=== PATIENT | male | born 1965 | race Caucasian/White ===

== ENCOUNTER 2016-08-18 20:55 | Emergency (ER) | payer MEDICAID ==
[2016-08-18] MEDS: IPRATROPIUM/ALBUTEROL (0.5MG/3MG) NEB INH ONE (21:29)
[2016-08-18] MEDS: AZITHROMYCIN 500 MG TABLET PO ONE (21:31)
--- NOTE | 2016-08-18 21:37 | Emergency Department Record ---
History of Present Illness - General Chief complaint: Flu Like Symptoms Stated complaint: CONGESTION Time Seen by Provider: 08/18/16 21:15 Source: Patient Mode of Arrival: Ambulatory Limitations: No limitations - History of Present Illness Initial comments: pt has been having a productive dark cough for a few days w sob and sweats. pt states he only smoked 4 cigarettes today. pt also has congestion MD Complaint: Lack of energy Onset/Timin -: Minutes(s) Location: Generalized Improves with: None Worsens with: None Associated Symptoms: Diaphoresis, Fever/chills, Nausea/vomiting, Shortness of breath - Bryant Coma Scale Eye Response: (4) Open spontaneously Motor Response: (6) Obeys commands Verbal Response: (5) Oriented Liliam Total: 15 - Related Data Home Medications Medication Instructions Recorded Confirmed Last Taken Atenolol [Atenolol] 100 mg PO DAILY 02/02/15 08/18/16 08/18/16 Furosemide [Furosemide] 40 mg PO BID 02/02/15 08/18/16 08/11/16 Amlodipine Besylate [Norvasc] 10 mg PO DAILY 05/17/15 08/18/16 08/18/16 Benazepril HCl [Benazepril HCl] 40 mg PO DAILY 05/17/15 08/18/16 08/18/16 Escitalopram Oxalate [Lexapro] 20 mg PO DAILY 11/11/15 08/18/16 08/18/16 Fluticasone Propionate [Flonase] 2 spray EACH NARES DAILY 08/18/16 08/18/1601/27 Previous Rx's Medication Instructions Recorded Albuterol Sulfate [Proair Hfa] 2 puff IH QID PRN #1 inhaler 12/16/15 Cyclobenzaprine HCl [Flexeril] 10 mg PO TID #30 tablet 03/29/16 Azithromycin [Zithromax] 250 mg PO DAILY #4 tab 08/18/16 Allergies Allergy/AdvReac Type Severity Reaction Status Date / Time No Known Drug Allergies Allergy Verified 05/30/16 15:46 Travel Screening - Travel/Exposure Within Last 30 Days Have you traveled within the last 30 days?: No - Travel/Exposure Within Last Year Have you traveled outside the [place] in the last year?: No - Additonal Travel Details Have you been exposed to anyone with a communicable illness?: No - Travel Symptoms Symptom Screening: None Review of Systems Reviewed: No additional complaints except as noted below Constitutional: Reports: As per HPI. Denies: Chills, Fever, Malaise, Night sweats, Weakness, Weight change Eyes: Reports: As per HPI. Denies: Eye discharge, Eye pain, Photophobia, Vision change ENT: Reports: As per HPI. Denies: Congestion, Dental pain, Ear pain, Epistaxis , Hearing loss, Throat pain Respiratory: Reports: As per HPI. Denies: Cough, Dyspnea, Hemoptysis, Stridor, Wheezes Cardiovascular: Reports: As per HPI. Denies: Arrhythmia, Chest pain, Dyspnea on exertion, Edema, Murmurs, Orthopnea, Palpitations, Paroxysmal nocturnal dyspnea, Rheumatic Fever, Syncope Endocrine: Reports: As per HPI. Denies: Fatigue, Heat or cold intolerance, Polydipsia, Polyuria Gastrointestinal: Reports: As per HPI. Denies: Abdominal pain, Constipation, Diarrhea, Hematemesis, Hematochezia, Melena, Nausea, Vomiting Genitourinary: Reports: As per HPI. Denies: Dysuria, Frequency, Hematuria, Incontinence, Retention, Testicular pain, Testicular mass, Urgency Musculoskeletal: Reports: As per HPI. Denies: Arthralgia, Back pain, Gout, Joint swelling, Myalgia, Neck pain Skin: Reports: As per HPI. Denies: Bruising, Change in color, Change in hair/ nails, Lesions, Pruritus, Rash Neurological: Reports: As per HPI. Denies: Abnormal gait, Confusion, Headache, Numbness, Paresthesias, Seizure, Tingling, Tremors, Vertigo, Weakness Psychiatric: Reports: As per HPI. Denies: Anxiety, Auditory hallucinations, Depression, Homicidal thoughts, Suicidal thoughts, Visual hallucinations Hematological/Lymphatic: Reports: As per HPI. Denies: Anemia, Blood Clots, Easy bleeding, Easy bruising, Swollen glands Past Medical History - SOCIAL HISTORY Smoking Status: Current every day smoker Alcohol Use: Occassional Drug Use: None - RESPIRATORY Hx Respiratory Disorders: No - CARDIOVASCULAR Hx Cardio Disorders: Yes Hx Edema: Yes (BLE) Hx Hypertension: Yes Hx Vascular Disease: Yes - NEURO Hx Neuro Disorders: Yes Hx CVA: Yes - GI Hx GI Disorders: No - Hx Genitourinary Disorders: No - ENDOCRINE Hx Endocrine Disorders: No - MUSCULOSKELETAL Hx Musculoskeletal Disorders: Yes Hx Arthritis: Yes (lower back) - PSYCH Hx Psych Problems: Yes Hx Anxiety: Yes (recent dx) Hx Depression: Yes - HEMATOLOGY/ONCOLOGY Hx Hematology/Oncology Disorders: No Family Medical History Any Significant Family History?: No Physical Exam - General General Appearance: Alert, Oriented x3, Cooperative - Head Head exam: Normal inspection - Eye Eye exam: Normal appearance, PERRL, EOMI Pupils: Normal accommodation - ENT ENT exam: Normal exam, Mucous membranes moist, Normal external ear exam, Normal orophraynx, TM's normal bilaterally Ear exam: Normal external inspection. negative: External canal tenderness Nasal Exam: Normal inspection. negative: Discharge, Sinus tenderness Mouth exam: Normal external inspection, Tongue normal Teeth exam: Normal inspection. negative: Dental caries Throat exam: Normal inspection. negative: Tonsillar erythema, Tonsillar exudate - Neck Neck exam: Normal inspection, Full ROM. negative: Tenderness - Respiratory Respiratory exam: Rales, Wheezes. negative: Respiratory distress - Cardiovascular Cardiovascular Exam: Regular rate, Normal rhythm, Normal heart sounds - GI/Abdominal GI/Abdominal exam: Soft, Normal bowel sounds. negative: Tenderness - Rectal Rectal exam: Deferred - exam: Deferred - Extremities Extremities exam: Normal inspection, Full ROM, Normal capillary refill. negative: Tenderness - Back Back exam: Reports: Normal inspection, Full ROM. Denies: Muscle spasm, Rash noted, Tenderness - Neurological Neurological exam: Alert, CN II-XII intact, Normal gait, Oriented X3 - Psychiatric Psychiatric exam: Normal affect, Normal mood - Skin Skin exam: Dry, Intact, Normal color, Warm Course Vital Signs 08/18/16 21:00 Temperature 98.0 F Pulse Rate [ 70 Pulse Ox Probe] Respiratory 18 Rate Blood Pressure 140/94 [Left Arm] Pulse Ox 97 Medical Decision Making - Management Options MDM Management: No Additional Work-up Planned - Data Complexity MDM Data: X-Ray Ordered and/or Reviewed - Radiology Data Radiology results: Report reviewed, Image reviewed Disposition Disposition: Discharge Clinical Impression: Bronchitis Disposition: Home, Self-Care Condition: (1) Good Instructions: Acute Bronchitis (ED), How to Stop Smoking (ED), Cigarette Smoking and Your Health (GEN) Additional Instructions: follow up with family doctor. return sooner if worse. Prescriptions: Azithromycin [Zithromax] 250 mg PO DAILY #4 tab Forms: Patient Portal Access
--- NOTE | 2016-08-23 08:42 | RADIOLOGY REPORT ---
EXAM: CHEST, TWO VIEWS HISTORY: PATIENT HAS A PRODUCTIVE COUGH WITH DARK SPUTUM. TECHNIQUE: Two views of the chest were provided along with the comparison study dated 12/16/15. FINDINGS: The cardiomediastinal silhouette is within normal limits for size and contour. The lela appear unremarkable. There is no radiographic evidence of a focal infiltrate or pleural effusion. IMPRESSION: STABLE RADIOGRAPHIC APPEARANCE OF THE CHEST WITH RESPECT TO THE PRIOR EXAMINATION. JOB NUMBER: [id number] MTDD
== END 2016-08-18 23:25 | disposition home or self-care (01) ==
LOC: ER 20:55
DX: J20.9 Acute bronchitis, unspecified (principal); R06.02 Shortness of breath; R11.0 Nausea; R61 Generalized hyperhidrosis; F17.210 Nicotine dependence, cigarettes, uncomplicated
CPT/HCPCS: 71020; 94640; 99283; 99284

== ENCOUNTER 2016-11-09 16:15 | Observation (INO) | payer MEDICAID ==
--- NOTE | 2016-11-09 16:31 | Emergency Department Record ---
History of Present Illness - General Chief Complaint: Chest Pain Stated Complaint: CHEST PAIN Time Seen by Provider: 11/09/16 16:29 Source: Patient Mode of Arrival: Ambulatory Limitations: No limitations - History of Present Illness Initial Comments: The patient is here due to a 12 hour hx of sharp stabbing R anterior chest pain. The pain has been waxing and waning all day. He denies any SOB, ZAHRA, or sweating with the pain but has had some mild nausea. He has had a recent URI and is still coughing mildly with mild sputum but no fever. The patient states he is taking Amoxicillin presently that was given at the [facility]. The patient has had some CP with exertion recently and also denies any pleuritic component to the pain. He does have cardiac risk factors of HTN, tobacco use, and family hx of CAD. Presently the pain is almost gone. MD Complaint: Chest pain Onset/Timin -: Hour(s) Onset: Awoke with symptoms Pain Location: Substernal Pain Radiation: None Severity: Mild Severity scale (1-10): 3 Quality: Other Consistency: Intermittent Improves With: Nothing Worsens With: Nothing Treatments Prior to Arrival: None - Related Data Home Medications Medication Instructions Recorded Confirmed Last Taken Atenolol [Atenolol] 100 mg PO DAILY 02/02/15 11/09/16 08/18/16 Furosemide [Furosemide] 40 mg PO BID 02/02/15 11/09/16 08/11/16 Amlodipine Besylate [Norvasc] 10 mg PO DAILY 05/17/15 11/09/16 08/18/16 Benazepril HCl [Benazepril HCl] 40 mg PO DAILY 05/17/15 11/09/16 08/18/16 Escitalopram Oxalate [Lexapro] 20 mg PO DAILY 11/11/15 11/09/16 08/18/16 Fluticasone Propionate [Flonase] 2 spray EACH NARES DAILY 08/18/16 11/09/1601/27 Albuterol Sulfate [Ventolin Hfa] 1 puff IH QID PRN 11/09/16 11/09/16 Unknown Cyclobenzaprine HCl [Flexeril] 10 mg PO TID PRN 11/09/16 11/09/16 Unknown Previous Rx's Medication Instructions Recorded Albuterol Sulfate [Proair Hfa] 2 puff IH QID PRN #1 inhaler 12/16/15 Allergies Allergy/AdvReac Type Severity Reaction Status Date / Time No Known Drug Allergies Allergy Unverified 10/26/16 19:36 Travel Screening - Travel/Exposure Within Last 30 Days Have you traveled within the last 30 days?: No Review of Systems Constitutional: Denies: Chills, Fever Eyes: Denies: Eye discharge ENT: Reports: Congestion Respiratory: Reports: Cough. Denies: Dyspnea Cardiovascular: Reports: Chest pain. Denies: Arrhythmia, Dyspnea on exertion Endocrine: Reports: Fatigue Past Medical History - SOCIAL HISTORY Smoking Status: Current every day smoker Alcohol Use: Occassional Drug Use: None - RESPIRATORY Hx Respiratory Disorders: No - CARDIOVASCULAR Hx Cardio Disorders: Yes Hx Edema: Yes (BLE) Hx Hypertension: Yes Hx Vascular Disease: Yes - NEURO Hx Neuro Disorders: Yes Hx CVA: Yes - GI Hx GI Disorders: No - Hx Genitourinary Disorders: No - ENDOCRINE Hx Endocrine Disorders: No - MUSCULOSKELETAL Hx Musculoskeletal Disorders: Yes Hx Arthritis: Yes (lower back) - PSYCH Hx Psych Problems: Yes Hx Anxiety: Yes (recent dx) Hx Depression: Yes - HEMATOLOGY/ONCOLOGY Hx Hematology/Oncology Disorders: No Family Medical History Any Significant Family History?: No Physical Exam - General General Appearance: Alert, Oriented x3, Cooperative, No acute distress - Head Head exam: Atraumatic, Normocephalic, Normal inspection - Eye Eye exam: Normal appearance, PERRL - Neck Neck exam: Normal inspection, Full ROM. negative: Tenderness - Respiratory Respiratory exam: Normal lung sounds bilaterally, Chest wall tenderness ( Palpation of the anterior chest wall reproduces the pain mildly.). negative: Respiratory distress - Cardiovascular Cardiovascular Exam: Regular rate, Normal rhythm, Normal heart sounds - GI/Abdominal GI/Abdominal exam: Soft, Normal bowel sounds. negative: Tenderness - Extremities Extremities exam: Pedal edema (Trace.) - Neurological Neurological exam: Alert, Normal gait. negative: Abnormal gait, Motor sensory deficit Course Vital Signs 11/09/16 16:19 Temperature 97.9 F Pulse Rate 69 Respiratory 22 Rate Blood Pressure 135/81 Pulse Ox 97 - Reevaluation(s) Reevaluation #1: The patient is doing much better at this time. He denies any pain or discomfort presently and has no SOB or pain with deep breaths. His cardiac evaluation was WNL and we are still waiting on a D-dimer. 11/09/16 17:37 Reevaluation #2: The patient is doing very well presently and is pain free. He does seem to have some sleep apnea because he will doze off to sleep and his RA biox does drop below 90%. When he wakes up and sits up the biox does increase to 95%. I also did discuss the case with Dr. Orellana and she agrees to the short stay admission. 11/09/16 18:37 Medical Decision Making - Data Complexity MDM Data: Labs Ordered and/or Reviewed, X-Ray Ordered and/or Reviewed, EKG Ordered and/or Reviewed - Lab Data Result diagrams: 11/09/16 16:35 11/09/16 16:35 - EKG Data -: EKG Interpreted by Me EKG: No Acute Changes, Normal EKG - Radiology Data Radiology results: Report reviewed (CXR: No acute dz process.) Disposition Disposition: Admit Clinical Impression: Chest pain at rest Decision to Admit: Admit from ER Decision to Admit Date: 11/09/16 Decision to Admit Time: 18:39 Accepting Physician: Reyna Time Discussed w/Accepting Physician: 18:39 Forms: Patient Portal Access Time of Disposition: 18:39
[2016-11-09] MEDS ORDERED: ASPIRIN 325 MG TABLET PO ONE (16:43)
[2016-11-09] MEDS ORDERED: KETOROLAC 30 MG/ML VIAL IVP ONE (16:44)
[2016-11-09 16:52] LABS: BASO % 0.3 % (0-6); EOS % 5.7 % (0-6); HEMOGLOBIN 16.9 gm/dl (14.0-18.0); LYMPH % 22.3 % (16-45); MEAN CELL VOLUME 93.9 fl (81-97); MEAN CORPUSCULAR HEMOGLOBIN 32.4 pg (27-33); MEAN CORPUSCULAR HGB CONC 34.5 g/dl (32-36); MEAN PLATELET VOLUME 10.9 fl (7.4-10.4); MONO % 9.7 % (0-9); PLATELET COUNT 146 K/uL (130-400); RED BLOOD COUNT 5.22 M/uL (4.40-5.70); WHITE BLOOD COUNT W/O DIFF 7.7 K/uL (4.2-12.2)
[2016-11-09 17:03] LABS: ANION GAP 6.5 (7-16); BLOOD UREA NITROGEN 15 mg/dL (9-20); CARBON DIOXIDE 29.5 mmol/L (22-30); CREATINE PHOSPHOKINASE 269 U/L (55-170); EST GLOMERULAR FILTRATION RATE > 60 ml/min; GLUCOSE,RANDOM 114 mg/dL (70-110)
[2016-11-09 17:05] LABS: INR 1.01; PARTIAL THROMBOPLASTIN TIME 29.4 SECONDS (24.5-39.1); PROTHROMBIN TIME (PATIENT) 11.4 SECONDS (9.5-12.1)
[2016-11-09 17:15] LABS: CKMB 1.9 ug/L (0-6); TROPONIN I < 0.012 ng/mL (0.00-0.034)
[2016-11-09] MEDS ORDERED: AZITHROMYCIN 500 MG TABLET PO ONE (18:04)
[2016-11-09] MEDS ORDERED: LEVOFLOXACIN 500MG IVPB 500 MG in DEXTROSE 1 BAG IVPB SCH (21:17)
[2016-11-09] MEDS ORDERED: CYCLOBENZAPRINE 10MG TABLET PO PRN (21:17)
[2016-11-09] MEDS ORDERED: ALBUTEROL HFA 8 GM INHALER INH PRN (21:17)
[2016-11-09] MEDS ORDERED: FUROSEMIDE 40 MG TABLET PO SCH (22:00)
--- NOTE | 2016-11-10 07:21 | RADIOLOGY REPORT ---
EXAM: CHEST, TWO VIEWS HISTORY: DIFFICULTY BREATHING. TECHNIQUE: Frontal and lateral views of the chest were performed. FINDINGS: There is no infiltrate or pleural effusion. The osseous structures are normal. IMPRESSION: NO ACUTE DISEASE PROCESS. THE OSSEOUS STRUCTURES ARE NORMAL. JOB NUMBER: [id number] MTDD
--- NOTE | 2016-11-10 09:34 | History & Physical ---
History of Present Illness - Date of Service Date of Service for History & Physical: 11/10/16 - History of Present Illness Admitting Diagnosis: 1. Chest pain, R/O MN. History of Present Illness: 51 y/o male with CC chest pain admitted for rule out MN. 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 Prior to admit had 12 hour history of chest pain while laying in bed with 10-15 minute episode of sharp stabbing right anterior chest pain radiating to right shoulder. Denies ZAHRA, shortness of breath, diaphoresis, dizziness. Reports chest pain was nearly resolved by the time he arrived to ED. Denies any prior history of chest pain or cardiac issues. Has never seen a speed operator. Has had recent URI, treated with amoxicillin a few days ago by Tae. Denied fever, chills. + sinus pressure and pain on and off for the past month. While in the ED BP 135/81, P 69, RR 22, T 97.9, SPO2 97% RA. WBC 7.7, Plt 146, D Dimer 0.27, anion gap 6.5, CK 209. Troponin #1 .012, CKMB # 1 1.9. EKG NSR, prolonged MT interval, nonspecific intraventricular conduction delay. CXR negative for acute process. Admitted for observation and completion of cardiac enzyme series. PCP. Dr Rusty Pinedo ([place], [place]) 11/10- resting comfortably in bed. No further complaint of chest pain or discomfort. Continues to report intermittent cough consistent with URI, sinus pain and pressure. T 98, P 62, BP 108/56, SPO2 92% 2L while sleeping, 100% RM while awake. Denies any history of sleep apnea. Complete set of cardiac enzymes as follows: MB #1 1.9, #2 1.7, #3 1.7. Troponin #1 0.012, #2 0.012, #3 0.012. Telemetry remains NSR Travel Screening - Travel/Exposure Within Last 30 Days Have you traveled within the last 30 days?: No - Travel/Exposure Within Last Year Have you traveled outside the [place] in the last year?: No - Additonal Travel Details Have you been exposed to anyone with a communicable illness?: No - Travel Symptoms Symptom Screening: None Review of Systems Constitutional: Denies: Chills, Fever Eyes: Denies: Eye discharge ENT: Reports: Congestion Respiratory: Reports: Cough. Denies: Dyspnea Cardiovascular: Reports: Chest pain. Denies: Arrhythmia, Dyspnea on exertion Endocrine: Reports: Fatigue Past Medical History - SOCIAL HISTORY Smoking Status: Current every day smoker Alcohol Use: Occassional Drug Use Detail:: Marijuana - RESPIRATORY Hx Respiratory Disorders: No Comment:: uses inhaler but doesn't know dx - CARDIOVASCULAR Hx Cardio Disorders: Yes Hx Edema: Yes (BLE) Hx Hypertension: Yes Hx Vascular Disease: Yes - NEURO Hx Neuro Disorders: Yes Hx CVA: Yes - GI Hx GI Disorders: No Comment:: occasional abd pain - Hx Genitourinary Disorders: No - ENDOCRINE Hx Endocrine Disorders: No - MUSCULOSKELETAL Hx Musculoskeletal Disorders: Yes Hx Arthritis: Yes (lower back) - PSYCH Hx Psych Problems: Yes Hx Anxiety: Yes (recent dx) Hx Depression: Yes - HEMATOLOGY/ONCOLOGY Hx Hematology/Oncology Disorders: No Family Medical History Any Significant Family History?: No Hx Anxiety: Mother Hx Depression: Father, Mother, Children Hx Diabetes: Grandparents Hx HTN: Mother Hx Seizures: Brother/Sister H&P Meds/Allergies - Allergies Allergies: Allergies Allergy/AdvReac Type Severity Reaction Status Date / Time No Known Drug Allergies Allergy Unverified 10/26/16 19:36 - Home Medications Home Medications Medication Instructions Recorded Confirmed Last Taken Atenolol 100 mg PO DAILY 02/02/15 11/09/16 08/18/16 Furosemide 40 mg PO BID 02/02/15 11/09/16 08/11/16 Amlodipine Besylate [Norvasc] 10 mg PO DAILY 05/17/15 11/09/16 08/18/16 Benazepril HCl 40 mg PO DAILY 05/17/15 11/09/16 08/18/16 Escitalopram Oxalate [Lexapro] 20 mg PO DAILY 11/11/15 11/09/16 08/18/16 Fluticasone Propionate [Flonase] 2 spray EACH NARES DAILY 08/18/16 11/09/1601/27 Albuterol Sulfate [Ventolin Hfa] 1 puff IH QID PRN 11/09/16 11/09/16 Unknown Cyclobenzaprine HCl [Flexeril] 10 mg PO TID PRN 11/09/16 11/09/16 Unknown Previous Rx's Medication Instructions Recorded Albuterol Sulfate [Proair Hfa] 2 puff IH QID PRN #1 inhaler 12/16/15 - Active Medications Active Medications: Current Medications Albuterol Sulfate (Ventolin Hfa) 2 puff INH QID PRN PRN Reason: Cough and Difficulty Breathing Amlodipine Besylate (Norvasc) 10 mg PO DAILY [facility] Aspirin (Ecotrin (Ec)) 325 mg PO DAILY [facility] Atenolol (Tenormin) 100 mg PO DAILY [facility] Benazepril HCl (Lotensin) 40 mg PO DAILY [facility] Cyclobenzaprine HCl (Flexeril) 10 mg PO TID PRN PRN Reason: MUSCLE SPASMS Escitalopram Oxalate (Lexapro) 20 mg PO DAILY [facility] Furosemide (Lasix Iv) 40 mg IVP BIDDIUR MADI Levofloxacin/Dextrose 500 mg/ (Glucose) 100 mls @ 125 mls/hr IVPB Q24H [facility]ADI Stop: 11/14/16 21:18 Last Admin: 11/09/16 23:13 Dose: 125 mls/hr Physical Exam - Vital Signs Vital Signs: Vital Signs - Last 24 Hrs Temp Pulse Pulse Resp BP BP Pulse Ox 11/10/16 08:45 60 12 11/10/16 05:02 97.6 F 64 12 131/77 91 L 11/10/16 04:55 91 L 11/10/16 01:03 68 18 11/10/16 00:10 97.8 F 61 18 120/65 92 L 11/10/16 00:02 92 L 11/09/16 21:17 98.0 F 67 20 128/79 91 L - General General Appearance: Alert, Oriented x3, Cooperative, No acute distress Limitations: No limitations - Head Head exam: Atraumatic, Normocephalic, Normal inspection - Eye Eye exam: Normal appearance, PERRL - ENT ENT exam: Mucous membranes moist (turbinates engorged, hyperemic bilat), TM's normal bilaterally Ear exam: Normal external inspection Nasal Exam: Sinus tenderness Mouth exam: Normal external inspection Teeth exam: Normal inspection Throat exam: Normal inspection (mid sternal, reproduced with cough) - Neck Neck exam: Normal inspection, Full ROM. negative: Tenderness - Respiratory Respiratory exam: Normal lung sounds bilaterally, Chest wall tenderness ( Palpation of the anterior chest wall reproduces the pain mildly.). negative: Respiratory distress - Cardiovascular Cardiovascular Exam: Regular rate, Normal rhythm, Normal heart sounds - GI/Abdominal GI/Abdominal exam: Soft, Normal bowel sounds. negative: Tenderness - Extremities Extremities exam: Pedal edema (Trace.) - Neurological Neurological exam: Alert, Normal gait. negative: Abnormal gait, Motor sensory deficit Results - Labs Result Diagrams: 11/09/16 16:35 11/09/16 16:35 Labs Last 24 Hours: Laboratory Results - last 24 hr 11/09/16 11/09/16 11/10/16 21:45 21:45 05:15 CK-MB (CK-2) 1.7 1.7 Troponin I < 0.012 11/10/16 05:15 CK-MB (CK-2) Troponin I < 0.012 VTE H&P Assessment - Risk for VTE Risk for VTE: Yes Risk Level: Moderate Risk Assessment Date: 11/10/16 Risk Assessment Time: 14:54 VTE Orders Placed or Will Be Placed: Yes Plan - Detailed Diagnosis and Plan (1) Chest pain at rest Current Visit: Yes Status: Acute Base Code: R07.9 - CHEST PAIN, UNSPECIFIED Comment: 11/10- Right sided chest pain at rest x 12 hours on and off for 12 hours prior to admit. Was laying in bed resting at the time. PMX HTN, current everyday smoker, anxiety, + family hx CAD. While in the ED BP 135/81, P 69, RR 22, T 97.9, SPO2 97% RA. WBC 7.7, Plt 146, D Dimer 0.27, anion gap 6.5, CK 209. Troponin #1 .012, CKMB # 1 1.9. EKG NSR, prolonged MT interval, nonspecific intraventricular conduction delay. CXR negative for acute process. Admitted for observation and completion of cardiac enzyme series. Complete set of cardiac enzymes as follows: MB #1 1.9, #2 1.7, #3 1.7. Troponin #1 0.012, #2 0.012, #3 0.012. Telemetry remains NSR. SPO2 92% 2L while sleeping - Anticipate discharge home, chest pain etiology not likely cardiac in nature - Nursing to trial without oxygen at rest and awake - Follow up with PCP in 2 weeks (2) Sinusitis Current Visit: Yes Status: Acute Qualifiers: Sinusitis location: frontal Chronicity: acute Recurrence: recurrent Qualified Code(s): J01.11 - Acute recurrent frontal sinusitis Base Code: J32.9 - CHRONIC SINUSITIS, UNSPECIFIED Comment: 11/10/16- Diagnosed and treated for sinusitis prior to admit. WBC normal , afebrile. No prior use of antibiotics in the last 30 days. No history of COPD. Will continue Augmentin 875/125 BID (3) DVT prophylaxis Current Visit: Yes Status: Acute Base Code: [id number] - Comment: 11/10- Encourgage frequent ambulation during hospitalization (4) Full code status Current Visit: Yes Status: Acute Base Code: Z78.9 - OTHER SPECIFIED HEALTH STATUS Comment: 11/10- Will remain full code during this hospitalization
[2016-11-10] MEDS ORDERED: FUROSEMIDE IV 40MG/4ML VIAL IVP SCH (10:00)
[2016-11-10] MEDS ORDERED: Non-Formulary MISC (Amlodipine Besylate [Norvasc] 10 MG) PO SCH (10:00)
[2016-11-10] MEDS ORDERED: AMLODIPINE BESYLATE 5MG TAB PO SCH (10:00)
[2016-11-10] MEDS ORDERED: BENAZEPRIL HCL 40 MG PO SCH (10:00)
[2016-11-10] MEDS ORDERED: ATENOLOL 50 MG TABLET PO SCH (10:00)
[2016-11-10] MEDS ORDERED: ATENOLOL 100 MG PO SCH (10:00)
[2016-11-10] MEDS ORDERED: ASPIRIN 325 MG TAB ENTERIC-COATED PO SCH (10:00)
[2016-11-10] MEDS ORDERED: ESCITALOPRAM 10 MG TABLET PO SCH (10:00)
[2016-11-10] MEDS ORDERED: BENAZEPRIL 20 MG TABLET PO SCH (10:00)
[2016-11-10] MEDS ORDERED: Non-Formulary MISC (Escitalopram Oxalate [Lexapro] 20 MG) PO SCH (10:00)
--- NOTE | 2016-11-10 14:29 | Discharge Summary ---
Providers Discharge Summary Date: 11/10/16 Date of admission: 11/09/16 20:47 Expected Date of Discharge: 11/10/16 Attending physician: LYRIC XIAO Primary care physician: RUSTY PINEDO Physical Exam - Vital Signs Vital Signs: Vital Signs - Last 24 Hrs Temp Pulse Pulse Resp BP BP Pulse Ox 11/10/16 09:00 98.0 F 62 14 108/56 92 L 11/10/16 08:45 60 12 11/10/16 05:02 97.6 F 64 12 131/77 91 L 11/10/16 04:55 91 L 11/10/16 01:03 68 18 11/10/16 00:10 97.8 F 61 18 120/65 92 L 11/10/16 00:02 92 L 11/09/16 21:17 98.0 F 67 20 128/79 91 L - General General Appearance: Alert, Oriented x3, Cooperative, No acute distress Limitations: No limitations - Head Head exam: Atraumatic, Normocephalic, Normal inspection - Eye Eye exam: Normal appearance, PERRL - Neck Neck exam: Normal inspection, Full ROM. negative: Tenderness - Respiratory Respiratory exam: Normal lung sounds bilaterally, Chest wall tenderness ( Palpation of the anterior chest wall reproduces the pain mildly.). negative: Respiratory distress - Cardiovascular Cardiovascular Exam: Regular rate, Normal rhythm, Normal heart sounds - GI/Abdominal GI/Abdominal exam: Soft, Normal bowel sounds. negative: Tenderness - Extremities Extremities exam: Pedal edema (Trace.) - Neurological Neurological exam: Alert, Normal gait. negative: Abnormal gait, Motor sensory deficit Hospitalization - Hospitalization Admission Diagnosis: 1. Chest pain, R/O NE. - Problem List/Discharge Diagnosis (1) Chest pain at rest Current Visit: Yes Status: Acute Base Code: R07.9 - CHEST PAIN, UNSPECIFIED Comment: 11/10- Right sided chest pain at rest x 12 hours on and off for 12 hours prior to admit. Was laying in bed resting at the time. PMX HTN, current everyday smoker, anxiety, + family hx CAD. While in the ED BP 135/81, P 69, RR 22, T 97.9, SPO2 97% RA. WBC 7.7, Plt 146, D Dimer 0.27, anion gap 6.5, CK 209. Troponin #1 .012, CKMB # 1 1.9. EKG NSR, prolonged MA interval, nonspecific intraventricular conduction delay. CXR negative for acute process. Admitted for observation and completion of cardiac enzyme series. Complete set of cardiac enzymes as follows: MB #1 1.9, #2 1.7, #3 1.7. Troponin #1 0.012, #2 0.012, #3 0.012. Telemetry remains NSR. SPO2 92% 2L while sleeping - Discharge home, chest pain etiology not likely cardiac in nature - O2 trial RA 95% while awake, 86% while sleep - Follow up with PCP in 2 weeks - Adivse follow up to rule out sleep apnea (2) Sinusitis Current Visit: Yes Status: Acute Discharge Diagnosis: Sinusitis location: frontal Chronicity: acute Recurrence: recurrent Qualified Code(s): J01.11 - Acute recurrent frontal sinusitis Base Code: J32.9 - CHRONIC SINUSITIS, UNSPECIFIED Comment: 11/10/16- Diagnosed and treated for sinusitis prior to admit. WBC normal , afebrile. No prior use of antibiotics in the last 30 days. No history of COPD. Will continue Augmentin 875/125 BID (3) DVT prophylaxis Current Visit: Yes Status: Acute Base Code: [id number] - Comment: 11/10- Encourgage frequent ambulation during hospitalization (4) Full code status Current Visit: Yes Status: Acute Base Code: Z78.9 - OTHER SPECIFIED HEALTH STATUS Comment: 11/10- Will remain full code during this hospitalization - Hospitalization Course Hospital Course: 51 y/o male with CC chest pain admitted for rule out NE. 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 Prior to admit had 12 hour history of chest pain while laying in bed with 10-15 minute episode of sharp stabbing right anterior chest pain radiating to right shoulder. Denies ZAHRA, shortness of breath, diaphoresis, dizziness. Reports chest pain was nearly resolved by the time he arrived to ED. Denies any prior history of chest pain or cardiac issues. 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 Has had recent URI, treated with amoxicillin a few days ago by Tae. Denied fever, chills. + sinus pressure and pain on and off for the past month. While in the ED BP 135/81, P 69, RR 22, T 97.9, SPO2 97% RA. WBC 7.7, Plt 146, D Dimer 0.27, anion gap 6.5, CK 209. Troponin #1 .012, CKMB # 1 1.9. EKG NSR, prolonged MA interval, nonspecific intraventricular conduction delay. CXR negative for acute process. Admitted for observation and completion of cardiac enzyme series. PCP. Dr Rusty Pinedo ([place], [place]) Condition at Discharge: (2) Stable Discharge Medications - Discharge Medications Home Medications: Ambulatory Orders Atenolol 100 mg PO DAILY 02/02/15 [Last Taken 08/18/16] Furosemide 40 mg PO BID 02/02/15 [Last Taken 08/11/16] Amlodipine Besylate [Norvasc] 10 mg PO DAILY 05/17/15 [Last Taken 08/18/16] Benazepril HCl 40 mg PO DAILY 05/17/15 [Last Taken 08/18/16] Escitalopram Oxalate [Lexapro] 20 mg PO DAILY 11/11/15 [Last Taken 08/18/16] Albuterol Sulfate [Proair Hfa] 2 puff IH QID PRN #1 inhaler 12/16/15 [Last Taken 08/18/16] Fluticasone Propionate [Flonase] 2 spray EACH NARES DAILY 08/18/16 [Last Taken 08/18/16] Albuterol Sulfate [Ventolin Hfa] 1 puff IH QID PRN 11/09/16 [Last Taken Unknown] Cyclobenzaprine HCl [Flexeril] 10 mg PO TID PRN 11/09/16 [Last Taken Unknown] Discharge Plan - Discharge Instructions Activity at Discharge: Increase Activity as Tolerated Diet at Discharge: Advance to Usual Diet
== END 2016-11-10 16:20 | disposition home or self-care (01) ==
LOC: ER 16:15 → INTOOBSV 20:47 → MEDSURG 20:47
PROVIDERS: ADMIT Family Medicine; ATTEND Family Medicine
DX: R07.9 Chest pain, unspecified (principal); I10 Essential (primary) hypertension; F17.200 Nicotine dependence, unspecified, uncomplicated; J32.9 Chronic sinusitis, unspecified; Z78.9 Other specified health status
CPT/HCPCS: 99285 ×2; 96374; 82550; 85025; 85730; 85610; 82553 ×2; 84484 ×2; 80048; 85379; 71020; 94761; 93005 ×2; 93010 ×2; G0378 ×2; J1885; 99220; J1956

== ENCOUNTER 2017-03-16 21:43 | Emergency (ER) | payer MEDICAID ==
[2017-03-16] MEDS ORDERED: ASPIRIN 81 MG CHEWABLE TABLET PO ONE (22:00)
--- NOTE | 2017-03-16 22:05 | Emergency Department Record ---
History of Present Illness - General Chief Complaint: Shortness of breath Stated Complaint: ZAHRA/ HEART HITTING HIS CHEST Time Seen by Provider: 03/16/17 21:45 Source: Patient Mode of Arrival: Ambulatory Limitations: No limitations - History of Present Illness Initial Comments: 51 yo male presents to ED with a CC of a coughing fit followed by "chest pressure" that lasted several minutes, now resolved. Patient reports that he was putting on his CPAP when his symptoms began. Patient denies fevers, chills , or productive cough symptoms. Patient denies previous heart or lung problems and reports recent negative stress testing. MD Complaint: Chest pain, Shortness of breath Onset/Timin -: Minutes(s) Severity: Moderate Severity scale (1-10): 5 Quality: Crushing Consistency: Intermittent, Now resolved Improves With: Nothing Worsens With: Coughing Context: Anxiety, Recent URI Associated Symptoms: Cough, Sputum production Treatments Prior to Arrival: None - Related Data Home Oxygen Therapy: Yes Home Oxygen Amount: 2 Liters Home Medications Medication Instructions Recorded Confirmed Last Taken Atenolol 100 mg PO DAILY 02/02/15 03/16/17 03/16/17 Furosemide 40 mg PO BID 02/02/15 03/16/17 03/16/17 Amlodipine Besylate [Norvasc] 10 mg PO DAILY 05/17/15 03/16/17 03/16/17 Benazepril HCl 40 mg PO DAILY 05/17/15 03/16/17 03/16/17 Escitalopram Oxalate [Lexapro] 20 mg PO DAILY 11/11/15 03/16/17 03/16/17 Fluticasone Propionate [Flonase] 2 spray EACH NARES DAILY 08/18/16 03/16/1711/27 Albuterol Sulfate [Ventolin Hfa] 1 puff IH QID PRN 11/09/16 03/16/17 03/16/17 Cyclobenzaprine HCl [Flexeril] 10 mg PO TID PRN 11/09/16 03/16/17 03/16/17 Previous Rx's Medication Instructions Recorded Albuterol Sulfate [Proair Hfa] 2 puff IH QID PRN #1 inhaler 12/16/15 Allergies Allergy/AdvReac Type Severity Reaction Status Date / Time No Known Drug Allergies Allergy Unverified 10/26/16 19:36 Travel Screening - Travel/Exposure Within Last 30 Days Have you traveled within the last 30 days?: No - Travel Symptoms Symptom Screening: None Review of Systems Constitutional: Denies: Chills, Fever, Malaise, Night sweats Eyes: Denies: Eye discharge, Eye pain ENT: Denies: Congestion, Ear pain, Epistaxis Respiratory: Reports: Cough, Dyspnea. Denies: Hemoptysis, Stridor Cardiovascular: Reports: Chest pain. Denies: Dyspnea on exertion, Palpitations Endocrine: Denies: Fatigue, Heat or cold intolerance Gastrointestinal: Denies: Abdominal pain, Nausea, Vomiting Genitourinary: Denies: Testicular pain, Testicular mass Musculoskeletal: Denies: Arthralgia, Back pain, Gout, Joint swelling Skin: Denies: Bruising, Change in color Neurological: Denies: Abnormal gait, Confusion, Headache, Seizure Psychiatric: Denies: Anxiety Hematological/Lymphatic: Denies: Anemia, Blood Clots Past Medical History - SOCIAL HISTORY Smoking Status: Current every day smoker Alcohol Use: Occasional Drug Use: Occasional Drug Use Detail:: Marijuana - RESPIRATORY Hx Respiratory Disorders: Yes Comment:: uses inhaler but doesn't know dx - CARDIOVASCULAR Hx Cardio Disorders: Yes Hx Edema: Yes (BLE) Hx Hypertension: Yes Hx Vascular Disease: Yes - NEURO Hx Neuro Disorders: Yes Hx CVA: Yes - GI Hx GI Disorders: No Comment:: occasional abd pain - Hx Genitourinary Disorders: No - ENDOCRINE Hx Endocrine Disorders: No - MUSCULOSKELETAL Hx Musculoskeletal Disorders: Yes Hx Arthritis: Yes (lower back) - PSYCH Hx Psych Problems: Yes Hx Anxiety: Yes (recent dx) Hx Depression: Yes - HEMATOLOGY/ONCOLOGY Hx Hematology/Oncology Disorders: No Family Medical History Any Significant Family History?: Yes Hx Anxiety: Mother Hx Depression: Father, Mother, Children Hx Diabetes: Grandparents Hx HTN: Mother Hx Seizures: Brother/Sister Physical Exam - General General Appearance: Alert, Oriented x3, Cooperative, No acute distress Limitations: No limitations - Head Head exam: Atraumatic, Normocephalic, Normal inspection Head exam detail: negative: Abrasion, Contusion, Brady's sign, General tenderness, Hematoma, Laceration - Eye Eye exam: Normal appearance. negative: Conjunctival injection, Periorbital swelling, Periorbital tenderness, Scleral icterus - ENT Ear exam: negative: Auricular hematoma, Auricular trauma Nasal Exam: negative: Active bleeding, Discharge, Dried blood, Foreign body Mouth exam: negative: Drooling, Laceration, Tongue elevation - Neck Neck exam: Normal inspection. negative: Meningismus, Tenderness - Respiratory Respiratory exam: Normal lung sounds bilaterally. negative: Rales, Respiratory distress, Rhonchi, Stridor - Cardiovascular Cardiovascular Exam: Regular rate, Normal rhythm, Normal heart sounds - GI/Abdominal GI/Abdominal exam: Soft. negative: Rebound, Rigid, Tenderness - Rectal Rectal exam: Deferred - exam: Deferred - Extremities Extremities exam: Normal inspection. negative: Calf tenderness, Pedal edema, Tenderness - Back Back exam: Denies: CVA tenderness (R), CVA tenderness (L) - Neurological Neurological exam: Alert, Normal gait, Oriented X3 - Psychiatric Psychiatric exam: Normal affect, Normal mood - Skin Skin exam: Normal color. negative: Abrasion Type of lesion: negative: abrasion Course Vital Signs 03/16/17 21:50 Temperature 97.6 F Pulse Rate [ 71 Pulse Ox Probe] Respiratory 18 Rate Blood Pressure 143/91 [Left Arm] Pulse Ox 96 - Reevaluation(s) Reevaluation #1: 03/16/17 22:04 EKG: NSR 69 Normal axis, normal intervals No acute ST-T wave changes No significant change from 11/10/16 Reevaluation #2: 03/16/17 22:46 Labs reviewed, CK 316, AST 66/ALT 122. Labs are otherwise grossly unremarkable for an acute process. CXR: No acute process. Patient was updated on all results and plan for repeat troponin at 3 hours. Patient agrees with the plan as discussed. Reevaluation #3: 03/17/17 01:43 Repeat Troponin is negative for myocardial damage. Will refer the patient for outpatient stress testing next week through the [facility]. Patient agrees with plan as discussed. Medical Decision Making - Lab Data Result diagrams: 03/16/17 22:05 03/16/17 22:05 Disposition Disposition: Discharge Clinical Impression: Chest pain Qualifiers: Chest pain type: unspecified Qualified Code(s): R07.9 - Chest pain, unspecified Disposition: Home, Self-Care Condition: (2) Stable Instructions: Chest Pain (ED) Additional Instructions: Return to ED if your symptoms worsen or if you have any concerns. Follow-up with Dr. Celis in the [facility] next week as directed. Referrals: RAVINDER CELIS M.D. [MEDICAL DOCTOR] - [facility] [Provider Group] Forms: Patient Portal Access Time of Disposition: 01:46 Quality - Quality Measures Quality Measures: N/A - Blood Pressure Screening Blood Pressure Classification: Normal BP Reading Systolic Measurement: 118 Diastolic Measurement: 71 Screening for High Blood Pressure: < Normal BP, F/U Not Required > [[id number]] Normal BP Follow-up Interventions: No follow-up required
[2017-03-16 22:20] LABS: BASO % 0.4 % (0-6); EOS % 7.3 % (0-6); GRAN % 57.1 % (47-80); HEMATOCRIT 45.8 % (42.0-52.0); HEMOGLOBIN 15.9 gm/dl (14.0-18.0); LYMPH % 24.6 % (16-45); MEAN CELL VOLUME 92.9 fl (81-97); MEAN CORPUSCULAR HEMOGLOBIN 32.3 pg (27-33); MEAN CORPUSCULAR HGB CONC 34.7 g/dl (32-36); MEAN PLATELET VOLUME 11.1 fl (7.4-10.4); MONO % 10.6 % (0-9); PLATELET COUNT 140 K/uL (130-400); RED BLOOD COUNT 4.93 M/uL (4.40-5.70); RED CELL DISTRIBUTION WIDTH 13.5 % (11.5-14.5); WHITE BLOOD COUNT W/O DIFF 8.5 K/uL (4.2-12.2)
[2017-03-16 22:29] LABS: ALB/GLOB RATIO 1.5 (1.1-1.8); ALKALINE PHOSPHATASE 116 U/L (38-126); ALT/SGPT 122 U/L (21-72); ANION GAP 8.2 (7-16); AST/SGOT 66 U/L (17-59); BILIRUBIN,TOTAL 0.76 mg/dL (0.2-1.3); BLOOD UREA NITROGEN 15 mg/dL (9-20); CARBON DIOXIDE 27.8 mmol/L (22-30); CREATINE PHOSPHOKINASE 316 U/L (55-170); CREATININE 0.7 mg/dL (0.66-1.25); EST GLOMERULAR FILTRATION RATE > 60 ml/min; GLUCOSE,RANDOM 142 mg/dL (70-110); TOTAL PROTEIN 6.6 gm/dL (6.3-8.2)
[2017-03-16 22:41] LABS: CKMB 3.5 ug/L (0-6)
[2017-03-16 22:42] LABS: TROPONIN I < 0.012 ng/mL (0.00-0.034)
--- NOTE | 2017-03-19 08:43 | RADIOLOGY REPORT ---
EXAM: CHEST, TWO VIEWS HISTORY: COUGHING. TECHNIQUE: Frontal and lateral views of the chest were obtained. Comparison: 11/09/16 chest. FINDINGS: The heart size is normal. The lungs are clear. No pneumothorax. IMPRESSION: NEGATIVE CHEST EXAMINATION. JOB NUMBER: [id number] MTDD
== END 2017-03-17 02:04 | disposition home or self-care (01) ==
LOC: ER 21:43
DX: R07.89 Other chest pain (principal); I10 Essential (primary) hypertension; F17.210 Nicotine dependence, cigarettes, uncomplicated; R06.02 Shortness of breath
CPT/HCPCS: 71020; 80053; 82550; 82553; 84484; 85025; 93005; 93010; 99284

== ENCOUNTER 2017-04-09 20:12 | Emergency (ER) | payer SELFPAY ==
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
[2017-04-09] MEDS ORDERED: HYDROCODONE/APAP 5/325MG TABLET PO ONE (22:35)
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
== END 2017-04-09 22:52 | disposition home or self-care (01) ==
LOC: ER 20:12
DX: S16.1XXA Strain of muscle, fascia and tendon at neck level, initial encounter (principal); S39.012A Strain of muscle, fascia and tendon of lower back, initial encounter; S46.912A Strain of unspecified muscle, fascia and tendon at shoulder and upper arm level, left arm, initial encounter; R07.89 Other chest pain; V89.2XXA Person injured in unspecified motor-vehicle accident, traffic, initial encounter
CPT/HCPCS: 71020; 72050; 72100; 99283; 99284

== ENCOUNTER 2017-07-08 19:59 | Emergency (ER) | payer MEDICAID ==
--- NOTE | 2017-07-08 20:17 | Emergency Department Record ---
History of Present Illness - General Chief complaint: Pain Stated complaint: RT KNEE PAIN/SWELLING Time Seen by Provider: 07/08/17 20:15 Source: Patient Mode of Arrival: Ambulatory Limitations: No limitations - History of Present Illness Initial comments: 51 yo male presents to ED for evaluation of right knee strain that occurred 2 weeks ago while having intercourse. Patient denies direct injury or traumatic injury, but may have twisted resulting in pain the following morning. Patient reports pain and swelling symptoms, denies redness, warmth, fevers, or instability. Patient has been able to ambulate but reports pain. Patient has not taken anything for pain at home. Patient denies health problems at his baseline. MD Complaint: Joint pain Onset/Timin -: Days(s) Location: Right, Knee History of Same: No Severity scale (1-10): 2 Quality: Sharp Consistency: Constant, Intermittent Improves with: Elevation, Rest, Other Worsens with: Walking, Weight bearing Associated Symptoms: Denies other symptoms - Related Data Previous Rx's Medication Instructions Recorded Albuterol Sulfate [Proair Hfa] 2 puff IH QID PRN #1 inhaler 12/16/15 Allergies Allergy/AdvReac Type Severity Reaction Status Date / Time No Known Drug Allergies Allergy Unverified 06/14/17 15:43 Travel Screening - Travel/Exposure Within Last 30 Days Have you traveled within the last 30 days?: No - Travel/Exposure Within Last Year Have you traveled outside the [place] in the last year?: No - Additonal Travel Details Have you been exposed to anyone with a communicable illness?: No - Travel Symptoms Symptom Screening: None Review of Systems Constitutional: Denies: Chills, Fever, Malaise, Night sweats Eyes: Denies: Eye discharge, Eye pain ENT: Denies: Congestion, Ear pain, Epistaxis Respiratory: Denies: Cough, Dyspnea Cardiovascular: Denies: Chest pain, Dyspnea on exertion Endocrine: Denies: Fatigue, Heat or cold intolerance Gastrointestinal: Denies: Abdominal pain, Nausea, Vomiting Genitourinary: Denies: Incontinence, Retention Musculoskeletal: Reports: Arthralgia, Joint swelling. Denies: Back pain, Gout Skin: Denies: Bruising, Change in color Neurological: Denies: Abnormal gait, Confusion, Headache, Seizure Psychiatric: Denies: Anxiety Hematological/Lymphatic: Denies: Anemia, Blood Clots Past Medical History - SOCIAL HISTORY Smoking Status: Current every day smoker Alcohol Use: Occasional Drug Use: None - RESPIRATORY Hx Respiratory Disorders: Yes Comment:: uses inhaler but doesn't know dx allergies - CARDIOVASCULAR Hx Cardio Disorders: Yes Hx Edema: Yes (BLE) Hx Hypertension: Yes Hx Vascular Disease: Yes - NEURO Hx Neuro Disorders: Yes Hx CVA: Yes - GI Hx GI Disorders: No Comment:: occasional abd pain - Hx Genitourinary Disorders: No - ENDOCRINE Hx Endocrine Disorders: No - MUSCULOSKELETAL Hx Musculoskeletal Disorders: Yes Hx Arthritis: Yes (lower back) - PSYCH Hx Psych Problems: Yes Hx Anxiety: Yes (recent dx) Hx Depression: Yes - HEMATOLOGY/ONCOLOGY Hx Hematology/Oncology Disorders: No Family Medical History Any Significant Family History?: No Hx Anxiety: Mother Hx Depression: Father, Mother, Children Hx Diabetes: Grandparents Hx HTN: Mother Hx Seizures: Brother/Sister Physical Exam - General General Appearance: Alert, Oriented x3, Cooperative, No acute distress Limitations: No limitations - Head Head exam: Atraumatic, Normocephalic, Normal inspection Head exam detail: negative: Abrasion, Contusion, Brady's sign, General tenderness, Hematoma, Laceration - Eye Eye exam: Normal appearance. negative: Conjunctival injection, Periorbital swelling, Periorbital tenderness, Scleral icterus - ENT Ear exam: negative: Auricular hematoma, Auricular trauma Nasal Exam: negative: Active bleeding, Discharge, Dried blood, Foreign body Mouth exam: negative: Drooling, Laceration, Muffled voice, Tongue elevation - Neck Neck exam: Normal inspection. negative: Meningismus, Tenderness - Respiratory Respiratory exam: Normal lung sounds bilaterally. negative: Rales, Respiratory distress, Rhonchi, Stridor - Cardiovascular Cardiovascular Exam: Regular rate, Normal rhythm, Normal heart sounds - GI/Abdominal GI/Abdominal exam: Soft. negative: Rebound, Rigid, Tenderness - Rectal Rectal exam: Deferred - exam: Deferred - Extremities Extremities exam: Other (Ligaments are stable on examination, no evidence for septic joint on examination, no effusion present.). negative: Calf tenderness, Joint swelling, Pedal edema, Tenderness - Back Back exam: Denies: CVA tenderness (R), CVA tenderness (L) - Neurological Neurological exam: Alert, Normal gait, Oriented X3 - Psychiatric Psychiatric exam: Normal affect, Normal mood - Skin Skin exam: Normal color. negative: Abrasion Type of lesion: negative: abrasion Course Vital Signs 07/08/17 20:03 Pulse Rate 69 Respiratory 20 Rate Blood Pressure 128/84 Pulse Ox 95 - Reevaluation(s) Reevaluation #1: 07/08/17 20:21 Patient was seen and examined, knee examination is essentially normal. Will place in knee immobilizer and prescribe Naprosyn for his symptoms as he has not taken anything for his pain symptoms with instructions to follow-up with his PCP in 5-7 days for further evaluation and to determine the need for MRI. Disposition Disposition: Discharge Clinical Impression: Strain of knee Qualifiers: Encounter type: initial encounter Laterality: right Qualified Code(s): S86.911A - Strain of unspecified muscle(s) and tendon(s) at lower leg level, right leg, initial encounter Disposition: Home, Self-Care Condition: (2) Stable Instructions: Knee Pain (ED) Additional Instructions: Return to ED if your symptoms worsen or if you have any concerns. Naprosyn as directed. Knee immobilizer as directed. Follow-up with your family doctor in 5-7 days as directed. Forms: Patient Portal Access Time of Disposition: 20:16 Quality - Quality Measures Quality Measures: N/A - Blood Pressure Screening Does Patient Have Any of the Following: No Blood Pressure Classification: Pre-Hypertensive BP Reading Systolic Measurement: 128 Diastolic Measurement: 84 Screening for High Blood Pressure: < Pre-Hypertensive BP, F/U Documented > [ G8950] Pre-Hypertensive Follow-up Interventions: Referral to alternative/primary care provider.
== END 2017-07-08 20:32 | disposition home or self-care (01) ==
LOC: ER 19:59
DX: S86.911A Strain of unspecified muscle(s) and tendon(s) at lower leg level, right leg, initial encounter (principal); V50.0XXA Driver of pick-up truck or van injured in collision with pedestrian or animal in nontraffic accident, initial encounter
CPT/HCPCS: 99282

== ENCOUNTER 2018-01-19 16:07 | Emergency (ER) | payer MEDICAID ==
[2018-01-19] MEDS ORDERED: PROPARACAINE HCL OPTH 15ML BTL OPTH ONE (16:29)
[2018-01-19] MEDS ORDERED: POLYMYXIN B SULF/TRIMETHOPRIM 10ML BTL OPTH ONE (16:56)
--- NOTE | 2018-01-19 16:56 | Emergency Department Record ---
History of Present Illness - General Chief complaint: Eye Problem Stated complaint: LT EYE IRRITATION Time Seen by Provider: 01/19/18 16:28 Source: Patient Mode of Arrival: Ambulatory Limitations: No limitations - History of Present Illness Initial comments: 52 yo male presents with left eye irritation that started 2 weeks ago. He was working on his car and felt like he got some "grit" in the eye. The eye was irritated for about 3-4 days. It improved then seem to return for another 3-4 days then calm down again. The last couple days the eye again has a FB sensation, mild lid swelling and awoke with some crusting this morning. No vision changes. He wears glasses but no contacts. Not a diabetic. MD chief complaint: Eye pain, Foreign body -: Week(s) (2) Onset Description: Gradual Location: Left eye Place: Home If Injury: Other (debris around the car) Eye Symptoms: Foreign body sensation (lateral aspect of the eye) Consistency: Intermittent Associated Symptoms: None Treatments Prior to Arrival: None - Related Data Previous Rx's Medication Instructions Recorded Albuterol Sulfate [Proair Hfa] 2 puff IH QID PRN #1 inhaler 12/16/15 Olopatadine HCl [Patanol] 1 drop OP BID #1 drops 01/19/18 Allergies Allergy/AdvReac Type Severity Reaction Status Date / Time No Known Drug Allergies Allergy Verified 01/19/18 16:41 Review of Systems Constitutional: Denies: Chills, Fever, Malaise, Weakness Eyes: Reports: Eye pain. Denies: Eye discharge, Photophobia, Vision change ENT: Denies: Congestion, Throat pain Respiratory: Denies: Cough Cardiovascular: Denies: Chest pain, Syncope Endocrine: Denies: Fatigue Gastrointestinal: Denies: Abdominal pain, Diarrhea, Nausea, Vomiting Genitourinary: Denies: Dysuria, Frequency, Hematuria Musculoskeletal: Denies: Arthralgia, Back pain, Myalgia Skin: Denies: Bruising, Change in color, Rash Neurological: Denies: Headache, Numbness, Weakness Psychiatric: Denies: Anxiety Hematological/Lymphatic: Denies: Easy bleeding, Easy bruising Past Medical History - SOCIAL HISTORY Smoking Status: Current every day smoker Drug Use: None - RESPIRATORY Hx Respiratory Disorders: Yes Comment:: uses inhaler but doesn't know dx allergies - CARDIOVASCULAR Hx Cardio Disorders: Yes Hx Edema: Yes (BLE) Hx Hypertension: Yes Hx Vascular Disease: Yes - NEURO Hx Neuro Disorders: Yes Hx CVA: Yes - GI Hx GI Disorders: No Comment:: occasional abd pain - Hx Genitourinary Disorders: No - ENDOCRINE Hx Endocrine Disorders: No - MUSCULOSKELETAL Hx Musculoskeletal Disorders: Yes Hx Arthritis: Yes (lower back) - PSYCH Hx Psych Problems: Yes Hx Anxiety: Yes (recent dx) Hx Depression: Yes - HEMATOLOGY/ONCOLOGY Hx Hematology/Oncology Disorders: No Family Medical History Hx Anxiety: Mother Hx Depression: Father, Mother, Children Hx Diabetes: Grandparents Hx HTN: Mother Hx Seizures: Brother/Sister Physical Exam - General General Appearance: Alert, Oriented x3, Cooperative, No acute distress Limitations: No limitations - Head Head exam: Normal inspection - Eye Eye exam: PERRL, Conjunctival injection, EOMI, Periorbital swelling (upper lid erythema and very mild swelling). negative: Normal appearance, Scleral icterus - ENT ENT exam: Normal exam, Mucous membranes moist Ear exam: Normal external inspection Nasal Exam: Normal inspection Mouth exam: Normal external inspection Teeth exam: Normal inspection Throat exam: Normal inspection - Neck Neck exam: Normal inspection, Full ROM. negative: Tenderness - Respiratory Respiratory exam: Normal lung sounds bilaterally. negative: Respiratory distress - Cardiovascular Cardiovascular Exam: Regular rate, Normal rhythm, Normal heart sounds - Neurological Neurological exam: Alert, Normal gait, Oriented X3 - Psychiatric Psychiatric exam: Normal affect, Normal mood - Skin Skin exam: Dry, Intact, Normal color, Warm Course - Reevaluation(s) Reevaluation #1: Slit Lamp: AC is clear Upper lid erythema mild conjunctival injection, increased lateral No FB visualized under magnification He did have 2 areas of abrasion with uptake at the close 6 o'clock and the 4 o' clock No ulcers visible Tonopen used with 3 good readings of 16,16,17 06/09/18 16:37 Disposition Disposition: Discharge Clinical Impression: Corneal abrasion Qualifiers: Encounter type: initial encounter Laterality: left Qualified Code(s): S05.02XA - Injury of conjunctiva and corneal abrasion without foreign body, left eye, initial encounter Disposition: Home, Self-Care Condition: (1) Good Instructions: Corneal Abrasion (ED) Additional Instructions: Return to the ED if worse, painful, vision changes Use the antibiotic every 4 hours Call your eye doctor on Sunday for a recheck of the eye Prescriptions: Olopatadine HCl [Patanol] 1 drop OP BID #1 drops Forms: Patient Portal Access Time of Disposition: 17:00 Quality - Quality Measures Quality Measures: N/A - Blood Pressure Screening Does Patient Have Any of the Following: Active Dx of HTN Blood Pressure Classification: Pre-Hypertensive BP Reading Systolic Measurement: 113 Diastolic Measurement: 80 Screening for High Blood Pressure: Patient Exclusion, Hx of HTN [G9744] Pre-Hypertensive Follow-up Interventions: Referral to alternative/primary care provider.
== END 2018-01-19 17:12 | disposition home or self-care (01) ==
LOC: ER 16:07
DX: S05.02XA Injury of conjunctiva and corneal abrasion without foreign body, left eye, initial encounter (principal); W22.8XXA Striking against or struck by other objects, initial encounter; I10 Essential (primary) hypertension; F17.210 Nicotine dependence, cigarettes, uncomplicated
CPT/HCPCS: 99283 ×2; J3490

== ENCOUNTER 2018-05-28 17:59 | Emergency (ER) | payer MEDICAID ==
[2018-05-28] MEDS ORDERED: PROPARACAINE HCL OPTH 15ML BTL OPTH ONE (18:06)
--- NOTE | 2018-05-28 18:14 | Emergency Department Record ---
History of Present Illness - General Chief complaint: Eye Problem Stated complaint: FOREIGN OBJECT LT EYE/BLURRY Time Seen by Provider: 05/28/18 18:12 Source: Patient Mode of Arrival: Ambulatory Limitations: No limitations - History of Present Illness Initial comments: 52 yo male presents to ED for evaluation of a FB sensation to the left eye that began yesterday while working on his truck. Patient reports mild blurred vision to the left eye, denies specific injury of discharge to the eye. Patient reports history of HTN, cerebral aneurysm s/p clipping. MD chief complaint: Foreign body, Vision change Onset/Timin -: Days(s) Location: Left eye Place: Street/outdoors Eye Symptoms: Blurry vision Associated Symptoms: None Treatments Prior to Arrival: None - Related Data Previous Rx's Medication Instructions Recorded Albuterol Sulfate [Proair Hfa] 2 puff IH QID PRN #1 inhaler 12/16/15 Allergies Allergy/AdvReac Type Severity Reaction Status Date / Time No Known Drug Allergies Allergy Verified 05/28/18 18:07 Travel Screening - Travel/Exposure Within Last 30 Days Have you traveled within the last 30 days?: No Review of Systems Constitutional: Denies: Chills, Fever, Malaise, Night sweats Eyes: Reports: Eye pain, Vision change. Denies: Eye discharge, Photophobia ENT: Denies: Congestion, Ear pain, Epistaxis Respiratory: Denies: Cough, Dyspnea Cardiovascular: Denies: Chest pain, Dyspnea on exertion Endocrine: Denies: Fatigue, Heat or cold intolerance Gastrointestinal: Denies: Abdominal pain, Nausea, Vomiting Genitourinary: Denies: Incontinence, Retention Musculoskeletal: Denies: Arthralgia, Back pain Skin: Denies: Bruising, Change in color Neurological: Denies: Abnormal gait, Confusion, Headache Psychiatric: Denies: Anxiety Hematological/Lymphatic: Denies: Anemia, Blood Clots Past Medical History - SOCIAL HISTORY Smoking Status: Current every day smoker Alcohol Use: None Drug Use: None - RESPIRATORY Hx Respiratory Disorders: Yes Comment:: uses inhaler but doesn't know dx allergies - CARDIOVASCULAR Hx Cardio Disorders: Yes Hx Edema: Yes (BLE) Hx Hypertension: Yes Hx Vascular Disease: Yes - NEURO Hx Neuro Disorders: Yes Hx CVA: Yes - GI Hx GI Disorders: No Comment:: occasional abd pain - Hx Genitourinary Disorders: No - ENDOCRINE Hx Endocrine Disorders: No - MUSCULOSKELETAL Hx Musculoskeletal Disorders: Yes Hx Arthritis: Yes (lower back) - PSYCH Hx Psych Problems: Yes Hx Anxiety: Yes (recent dx) Hx Depression: Yes - HEMATOLOGY/ONCOLOGY Hx Hematology/Oncology Disorders: No Family Medical History Any Significant Family History?: Yes Hx Anxiety: Mother Hx Depression: Father, Mother, Children Hx Diabetes: Grandparents Hx HTN: Mother Hx Seizures: Brother/Sister Physical Exam - General General Appearance: Alert, Oriented x3, Cooperative, Mild distress Limitations: No limitations - Head Head exam: Atraumatic, Normocephalic, Normal inspection Head exam detail: negative: Abrasion, Contusion, Brady's sign, General tenderness, Hematoma, Laceration - Eye Eye exam: Conjunctival injection, Other (<0.1 cm abrasion to the mid-pupil region of the cornea, no discharge noted, no FB noted on eversion of the upper/ lower lids, negative Mary's.). negative: Periorbital swelling, Periorbital tenderness, Scleral icterus - ENT Ear exam: negative: Auricular hematoma, Auricular trauma Nasal Exam: negative: Active bleeding, Discharge, Dried blood, Foreign body Mouth exam: negative: Drooling, Laceration, Muffled voice, Tongue elevation - Neck Neck exam: Normal inspection. negative: Meningismus, Tenderness - Respiratory Respiratory exam: Normal lung sounds bilaterally. negative: Rhonchi, Stridor, Wheezes - Cardiovascular Cardiovascular Exam: Regular rate, Normal rhythm, Normal heart sounds - GI/Abdominal GI/Abdominal exam: Soft. negative: Rebound, Rigid, Tenderness - Rectal Rectal exam: Deferred - exam: Deferred - Extremities Extremities exam: Normal inspection. negative: Pedal edema, Tenderness - Back Back exam: Denies: CVA tenderness (R), CVA tenderness (L) - Neurological Neurological exam: Alert, Normal gait, Oriented X3 - Psychiatric Psychiatric exam: Normal affect, Normal mood - Skin Skin exam: Normal color. negative: Abrasion Type of lesion: negative: abrasion Course Vital Signs 05/28/18 18:04 Temperature 98.3 F Pulse Rate 57 L Respiratory 18 Rate Blood Pressure 123/71 Pulse Ox 96 - Reevaluation(s) Reevaluation #1: 05/28/18 18:19 Patient was seen and examined, small corneal abrasion is noted at the mid- pupil. No FB present on examination. Negative Mary's sign. [facility] reviewed: 20/40 Right 20/40 Left Disposition Disposition: Discharge Clinical Impression: Corneal abrasion Qualifiers: Encounter type: initial encounter Laterality: left Qualified Code(s): S05.02XA - Injury of conjunctiva and corneal abrasion without foreign body, left eye, initial encounter Disposition: Home, Self-Care Condition: (2) Stable Instructions: Corneal Abrasion (ED) Additional Instructions: Return to ED if your symptoms worsen or if you have any concerns. Polymyxin eye drops as directed. Follow-up with your eye doctor in [place] in 1-3 days as directed. Forms: Patient Portal Access Time of Disposition: 18:14 Quality - Quality Measures Quality Measures: N/A - Blood Pressure Screening Does Patient Have Any of the Following: No Blood Pressure Classification: Pre-Hypertensive BP Reading Systolic Measurement: 123 Diastolic Measurement: 71 Screening for High Blood Pressure: < Pre-Hypertensive BP, F/U Documented > [ G8950] Pre-Hypertensive Follow-up Interventions: Referral to alternative/primary care provider.
[2018-05-28] MEDS ORDERED: POLYMYXIN B SULF/TRIMETHOPRIM 10ML BTL OPTH SCH (18:15)
== END 2018-05-28 18:30 | disposition home or self-care (01) ==
LOC: ER 17:59
DX: S05.02XA Injury of conjunctiva and corneal abrasion without foreign body, left eye, initial encounter (principal); Y92.410 Unspecified street and highway as the place of occurrence of the external cause; I10 Essential (primary) hypertension; F17.210 Nicotine dependence, cigarettes, uncomplicated
CPT/HCPCS: 99282

== ENCOUNTER 2018-07-11 15:09 | Emergency (ER) | payer MEDICAID ==
--- NOTE | 2018-07-11 15:33 | Emergency Department Record ---
History of Present Illness - General Chief complaint: Flank Pain Stated complaint: COUGH AND SWELLING ON SIDE Time Seen by Provider: 07/11/18 15:24 Source: Patient Mode of Arrival: Ambulatory Limitations: No limitations - History of Present Illness Initial comments: The patient is here due to a productive cough for 2 days. He has had no SOB or ZAHRA or fever. Additionally the patient has felt L flank "swelling" for a year. He has seen his PCP for it but no dx was given. There has been no flank pain, hematuria, or trauma involved. MD Complaint: Other Onset/Timin -: Days(s) Location: Left flank Improves with: None Worsens with: None - Related Data Previous Rx's Medication Instructions Recorded Albuterol Sulfate [Proair Hfa] 2 puff IH QID PRN #1 inhaler 12/16/15 Doxycycline Monohydrate [Mondoxyne 100 mg PO BID #14 capsule 07/11/18 Nl] Allergies Allergy/AdvReac Type Severity Reaction Status Date / Time No Known Drug Allergies Allergy Verified 05/28/18 18:07 Travel Screening - Travel/Exposure Within Last 30 Days Have you traveled within the last 30 days?: No - Travel/Exposure Within Last Year Have you traveled outside the [place] in the last year?: No - Additonal Travel Details Have you been exposed to anyone with a communicable illness?: No - Travel Symptoms Symptom Screening: None Review of Systems Constitutional: Denies: Chills, Fever, Malaise Eyes: Denies: Eye discharge ENT: Reports: Congestion Respiratory: Reports: Cough. Denies: Dyspnea Past Medical History - SOCIAL HISTORY Smoking Status: Current every day smoker Alcohol Use: Occasional Drug Use: Occasional Drug Use Detail:: Marijuana - RESPIRATORY Hx Respiratory Disorders: Yes Comment:: uses inhaler but doesn't know dx allergies - CARDIOVASCULAR Hx Cardio Disorders: Yes Hx Edema: Yes (BLE) Hx Hypertension: Yes Hx Vascular Disease: Yes - NEURO Hx Neuro Disorders: Yes Hx CVA: Yes - GI Hx GI Disorders: No Comment:: occasional abd pain - Hx Genitourinary Disorders: No - ENDOCRINE Hx Endocrine Disorders: No - MUSCULOSKELETAL Hx Musculoskeletal Disorders: Yes Hx Arthritis: Yes (lower back) - PSYCH Hx Psych Problems: Yes Hx Anxiety: Yes (recent dx) Hx Depression: Yes - HEMATOLOGY/ONCOLOGY Hx Hematology/Oncology Disorders: No Family Medical History Any Significant Family History?: No Hx Anxiety: Mother Hx Depression: Father, Mother, Children Hx Diabetes: Grandparents Hx HTN: Mother Hx Seizures: Brother/Sister Physical Exam - General General Appearance: Alert, Oriented x3, Cooperative, No acute distress - Head Head exam: Atraumatic, Normocephalic, Normal inspection - Eye Eye exam: Normal appearance, PERRL - ENT Throat exam: Normal inspection. negative: Tonsillar erythema, Tonsillar exudate - Neck Neck exam: Normal inspection, Full ROM. negative: Tenderness - Respiratory Respiratory exam: Normal lung sounds bilaterally. negative: Respiratory distress - Cardiovascular Cardiovascular Exam: Regular rate, Normal rhythm, Normal heart sounds - GI/Abdominal GI/Abdominal exam: Soft (morbidly obese.), Normal bowel sounds. negative: Distended, Rebound, Rigid, Tenderness Course Vital Signs 07/11/18 15:15 Temperature 97.7 F Pulse Rate 56 L Respiratory 18 Rate Blood Pressure 121/82 Pulse Ox 96 - Reevaluation(s) Reevaluation #1: I did discuss the normal lab results with the patient and the need for F/U due to the chronic L flank issue. 07/11/18 16:42 Medical Decision Making - Data Complexity MDM Data: Labs Ordered and/or Reviewed - Lab Data Result diagrams: 07/11/18 15:43 07/11/18 15:43 Disposition Disposition: Discharge Clinical Impression: Sinusitis Qualifiers: Sinusitis location: unspecified location Chronicity: acute Recurrence: not specified as recurrent Qualified Code(s): J01.90 - Acute sinusitis, unspecified Disposition: Home, Self-Care Condition: (2) Stable Instructions: Sinusitis (ED) Additional Instructions: Please take the Doxycycline as directed and quit smoking. Please see your family doctor next week if not better. Return to the ER for any worsening issues. Prescriptions: Doxycycline Monohydrate [Mondoxyne Nl] 100 mg PO BID #14 capsule Forms: Patient Portal Access Time of Disposition: 16:43 Quality - Quality Measures Quality Measures: N/A - Blood Pressure Screening View Details: Yes Does Patient Have Any of the Following: No Blood Pressure Classification: Pre-Hypertensive BP Reading Systolic Measurement: 121 Diastolic Measurement: 82 Screening for High Blood Pressure: < Pre-Hypertensive BP, F/U Documented > [ G8950] Pre-Hypertensive Follow-up Interventions: Referral to alternative/primary care provider.
[2018-07-11 15:54] LABS: BASO % 0.4 % (0-6); EOS % 3.6 % (0-6); GRAN % 68.9 % (47-80); HEMATOCRIT 48.2 % (42.0-52.0); LYMPH % 18.8 % (16-45); MEAN CELL VOLUME 92.5 fl (81-97); MEAN CORPUSCULAR HEMOGLOBIN 32.6 pg (27-33); MEAN CORPUSCULAR HGB CONC 35.3 g/dl (32-36); MEAN PLATELET VOLUME 11.3 fl (7.4-10.4); MONO % 8.3 % (0-9); PLATELET COUNT 145 K/uL (130-400); RED BLOOD COUNT 5.21 M/uL (4.40-5.70); RED CELL DISTRIBUTION WIDTH 13.4 % (11.5-14.5); URINE APPEARANCE CLEAR; URINE BILIRUBIN NEGATIVE (NEGATIVE); URINE BLOOD TRACE-I (NEGATIVE); URINE COLOR YELLOW; URINE GLUCOSE (UA) NEGATIVE (NEGATIVE); URINE KETONE NEGATIVE (NEGATIVE); URINE LEUKOCYTE ESTERASE NEGATIVE (NEGATIVE); URINE NITRITE NEGATIVE (NEGATIVE); URINE PROTEIN NEGATIVE (NEGATIVE); URINE UROBILINOGEN 0.2 E.U./dL (0.20 - 1.00); WHITE BLOOD COUNT W/O DIFF 10.7 K/uL (4.2-12.2)
[2018-07-11 16:02] LABS: URINE RBC 0 - 2 (NONE SEEN); URINE WBC NONE SEEN (0-2/hpf)
[2018-07-11 16:07] LABS: BLOOD UREA NITROGEN 14 mg/dL (6-20); CREATININE 0.8 mg/dL (0.7-1.2); EST GLOMERULAR FILTRATION RATE > 60 mL/min
[2018-07-11 16:08] LABS: TOTAL PROTEIN 7.3 g/dL (6.6-8.7)
[2018-07-11 16:10] LABS: GLUCOSE,RANDOM 99 mg/dL (74-109)
[2018-07-11 16:12] LABS: ALT/SGPT 28 U/L (<41)
[2018-07-11 16:13] LABS: ALB/GLOB RATIO 1.4 (1.1-1.8); ALBUMIN 4.3 g/dL (4.0-5.0); ALKALINE PHOSPHATASE 92 U/L (40-129); AST/SGOT 20 U/L (10.0-50.0)
== END 2018-07-11 16:51 | disposition home or self-care (01) ==
LOC: ER 15:09
DX: J01.90 Acute sinusitis, unspecified (principal); R05 Cough; R10.9 Unspecified abdominal pain; I10 Essential (primary) hypertension; F17.210 Nicotine dependence, cigarettes, uncomplicated
CPT/HCPCS: 80053; 81001; 85025; 99283

== ENCOUNTER 2018-08-14 15:11 | Emergency (ER) | payer MEDICAID ==
[2018-08-14] MEDS ORDERED: IPRATROPIUM/ALBUTEROL (0.5MG/3MG) NEB INH ONE (15:45)
[2018-08-14 15:58] LABS: INFLUENZA A NEGATIVE (NEGATIVE); INFLUENZA B NEGATIVE (NEGATIVE)
--- NOTE | 2018-08-14 16:00 | Emergency Department Record ---
History of Present Illness - General Chief complaint: Cold Stated complaint: SINUS/CHEST CONGESTION, ZAHRA Time Seen by Provider: 08/14/18 15:45 Source: Patient Mode of Arrival: Ambulatory - History of Present Illness Initial comments: cough and congestion and some wheezing and he smokes cigarettes Onset/Timin -: Days(s) Severity: Moderate Severity scale (1-10): 7 Quality: Aching - Related Data Previous Rx's Medication Instructions Recorded Albuterol Sulfate [Proair Hfa] 2 puff IH QID PRN #1 inhaler 12/16/15 Albuterol Sulfate [Proair Hfa] 1 - 2 puff IH .EVERY 4-6 HOURS PRN 08/14/18 #1 inhaler Azithromycin 250 mg PO DAILY #6 tablet 08/14/18 Prednisone [Prednisone 10Mg] 10 mg PO ASDIR #30 tab 08/14/18 Allergies Allergy/AdvReac Type Severity Reaction Status Date / Time No Known Drug Allergies Allergy Verified 08/14/18 15:21 Travel Screening - Travel/Exposure Within Last 30 Days Have you traveled within the last 30 days?: No - Travel/Exposure Within Last Year Have you traveled outside the [place] in the last year?: No - Additonal Travel Details Have you been exposed to anyone with a communicable illness?: No - Travel Symptoms Symptom Screening: None Review of Systems Reviewed: No additional complaints except as noted below Constitutional: Reports: As per HPI. Denies: Chills, Fever, Malaise, Night sweats, Weakness, Weight change Eyes: Reports: As per HPI. Denies: Eye discharge, Eye pain, Photophobia, Vision change ENT: Reports: As per HPI, Congestion. Denies: Dental pain, Ear pain, Epistaxis , Hearing loss, Throat pain Respiratory: Reports: As per HPI, Cough. Denies: Dyspnea, Hemoptysis, Stridor, Wheezes Cardiovascular: Reports: As per HPI. Denies: Arrhythmia, Chest pain, Dyspnea on exertion, Edema, Murmurs, Orthopnea, Palpitations, Paroxysmal nocturnal dyspnea, Rheumatic Fever, Syncope Endocrine: Reports: As per HPI. Denies: Fatigue, Heat or cold intolerance, Polydipsia, Polyuria Gastrointestinal: Reports: As per HPI. Denies: Abdominal pain, Constipation, Diarrhea, Hematemesis, Hematochezia, Melena, Nausea, Vomiting Genitourinary: Reports: As per HPI. Denies: Dysuria, Frequency, Hematuria, Incontinence, Retention, Testicular pain, Testicular mass, Urgency Musculoskeletal: Reports: As per HPI. Denies: Arthralgia, Back pain, Gout, Joint swelling, Myalgia, Neck pain Skin: Reports: As per HPI. Denies: Bruising, Change in color, Change in hair/ nails, Lesions, Pruritus, Rash Neurological: Reports: As per HPI. Denies: Abnormal gait, Confusion, Headache, Numbness, Paresthesias, Seizure, Tingling, Tremors, Vertigo, Weakness Psychiatric: Reports: As per HPI. Denies: Anxiety, Auditory hallucinations, Depression, Homicidal thoughts, Suicidal thoughts, Visual hallucinations Hematological/Lymphatic: Reports: As per HPI. Denies: Anemia, Blood Clots, Easy bleeding, Easy bruising, Swollen glands Past Medical History - SOCIAL HISTORY Smoking Status: Current every day smoker Alcohol Use: Rare Drug Use: None - RESPIRATORY Hx Respiratory Disorders: Yes Comment:: uses inhaler but doesn't know dx allergies - CARDIOVASCULAR Hx Cardio Disorders: Yes Hx Edema: Yes (BLE) Hx Hypertension: Yes Hx Vascular Disease: Yes - NEURO Hx Neuro Disorders: Yes Hx CVA: Yes - GI Hx GI Disorders: No Comment:: occasional abd pain - Hx Genitourinary Disorders: No - ENDOCRINE Hx Endocrine Disorders: No - MUSCULOSKELETAL Hx Musculoskeletal Disorders: Yes Hx Arthritis: Yes (lower back) - PSYCH Hx Psych Problems: Yes Hx Anxiety: Yes (recent dx) Hx Depression: Yes - HEMATOLOGY/ONCOLOGY Hx Hematology/Oncology Disorders: No Family Medical History Any Significant Family History?: Yes Hx Anxiety: Mother Hx Depression: Father, Mother, Children Hx Diabetes: Grandparents Hx HTN: Mother Hx Seizures: Brother/Sister Physical Exam - General General Appearance: Alert, Oriented x3, Cooperative, No acute distress - Head Head exam: Normal inspection - Eye Eye exam: Normal appearance, PERRL Pupils: Normal accommodation - ENT ENT exam: Normal exam, Mucous membranes moist, Normal external ear exam, Normal orophraynx, TM's normal bilaterally Ear exam: Normal external inspection. negative: External canal tenderness Nasal Exam: Normal inspection. negative: Discharge, Sinus tenderness Mouth exam: Normal external inspection, Tongue normal Teeth exam: Normal inspection. negative: Dental caries Throat exam: Normal inspection. negative: Tonsillar erythema, Tonsillar exudate - Neck Neck exam: Normal inspection, Full ROM. negative: Tenderness - Respiratory Respiratory exam: Wheezes. negative: Respiratory distress - Cardiovascular Cardiovascular Exam: Regular rate, Normal rhythm, Normal heart sounds - GI/Abdominal GI/Abdominal exam: Soft, Normal bowel sounds. negative: Tenderness - Rectal Rectal exam: Deferred - exam: Deferred - Extremities Extremities exam: Normal inspection, Full ROM, Normal capillary refill. negative: Tenderness - Back Back exam: Reports: Normal inspection, Full ROM. Denies: Muscle spasm, Rash noted, Tenderness - Neurological Neurological exam: Alert, Normal gait, Oriented X3, Reflexes normal - Psychiatric Psychiatric exam: Normal affect, Normal mood - Skin Skin exam: Dry, Intact, Normal color, Warm Course Vital Signs 08/14/18 15:17 Temperature 98.3 F Pulse Rate 62 Respiratory 18 Rate Blood Pressure 117/65 Pulse Ox 95 Medical Decision Making - Lab Data Lab Results 08/14/18 Range/Units 15:30 Influenza Type A Ag Negative (NEGATIVE) Influenza Type B Ag Negative (NEGATIVE) Disposition Clinical Impression: Bronchitis COPD (chronic obstructive pulmonary disease) Qualifiers: COPD type: COPD with acute exacerbation Qualified Code(s): J44.1 - Chronic obstructive pulmonary disease with (acute) exacerbation Disposition: Home, Self-Care Condition: (1) Good Instructions: Acute Bronchitis (ED) Additional Instructions: follow up with family in one week Prescriptions: Albuterol Sulfate [Proair Hfa] 1 - 2 puff IH .EVERY 4-6 HOURS PRN #1 inhaler PRN Reason: Difficulty In Breathing Azithromycin 250 mg PO DAILY #6 tablet Prednisone [Prednisone 10Mg] 10 mg PO ASDIR #30 tab Forms: Patient Portal Access Time of Disposition: 17:02 Quality - Quality Measures Quality Measures: N/A - Blood Pressure Screening Does Patient Have Any of the Following: No Blood Pressure Classification: Normal BP Reading Systolic Measurement: 117 Diastolic Measurement: 65 Screening for High Blood Pressure: < Normal BP, F/U Not Required > [G8783]
--- NOTE | 2018-08-15 13:43 | RADIOLOGY REPORT ---
EXAM: CHEST, TWO VIEWS HISTORY: COUGH, SHORTNESS OF BREATH. TECHNIQUE: Two views of the chest were obtained. Comparison: Chest radiograph 04/09/17. FINDINGS: The cardiac silhouette is within normal size limits. No new focal pulmonary opacities are appreciated. Slight coarse prominence of the pulmonary interstitium bilaterally, similar to prior studies. No pleural effusion or pneumothorax. Metallic jewelry superimposes the anterior left chest. IMPRESSION: NO ACUTE/FOCAL PULMONARY ABNORMALITIES ARE DETECTED. JOB NUMBER: [id number] MTDD
== END 2018-08-14 17:11 | disposition home or self-care (01) ==
LOC: ER 15:11
DX: J44.1 Chronic obstructive pulmonary disease with (acute) exacerbation (principal); J20.9 Acute bronchitis, unspecified; J44.0 Chronic obstructive pulmonary disease with (acute) lower respiratory infection; I10 Essential (primary) hypertension; F17.210 Nicotine dependence, cigarettes, uncomplicated
CPT/HCPCS: 71046; 87400; 94640; 99283; 99284

== ENCOUNTER 2019-05-26 14:56 | Emergency (ER) | payer MEDICAID, MEDICARE ==
[2019-05-26 16:44] LABS: ABSOLUTE NEUTROPHIL COUNT 3.23; HEMATOCRIT 51.6 % (42.0-52.0); HEMOGLOBIN 17.7 gm/dl (14.0-18.0); MEAN CORPUSCULAR HEMOGLOBIN 31.6 pg (27-33); MEAN CORPUSCULAR HGB CONC 34.3 g/dl (32-36); MEAN PLATELET VOLUME 11.3 fl (7.4-10.4); PLATELET COUNT 118 K/uL (130-400); RED BLOOD COUNT 5.61 M/uL (4.40-5.70); RED CELL DISTRIBUTION WIDTH 14.3 % (11.5-14.5); WHITE BLOOD COUNT W/O DIFF 6.4 K/uL (4.2-12.2)
[2019-05-26] MEDS: 0.9 % SODIUM CHLORIDE 1000ML 1,000 ML IV ONE (16:49)
--- NOTE | 2019-05-26 16:56 | Emergency Department Record ---
History of Present Illness - General Chief complaint: Nausea, Vomiting, Diarrhea Stated complaint: DIARRHEA,LOSS OF APPETITE Time Seen by Provider: 05/26/19 16:10 Source: Patient Mode of Arrival: Ambulatory Limitations: No limitations - History of Present Illness Initial comments: 53 yo male presents with diarrhea since Sunday. He is having several stools a day. No fever or blood. No vomiting. He has fairly normal appetite. No known sick exposures, travel, chronic GI disease. He has some mild cramps. 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 MD complaint: Diarrhea Onset/Timin -: Days(s) Description of Vomiting: Watery Description of Diarrhea: Water Location: Other (minimal pain) Radiation: None Severity: Moderate Quality: Aching Improves with: None Worsens with: Eating Context: Other Associated Symptoms: Denies other symptoms - Related Data Previous Rx's Medication Instructions Recorded Albuterol Sulfate [Proair Hfa] 2 puff IH QID PRN #1 inhaler 12/16/15 Albuterol Sulfate [Proair Hfa] 1 - 2 puff IH .EVERY 4-6 HOURS PRN 08/14/18 #1 inhaler Loperamide HCl [Imodium A-D] 2 mg PO Q6H #12 tablet 05/26/19 Allergies Allergy/AdvReac Type Severity Reaction Status Date / Time No Known Drug Allergies Allergy Verified 05/26/19 15:45 Travel Screening - Travel/Exposure Within Last 30 Days Have you traveled within the last 30 days?: No - Travel/Exposure Within Last Year Have you traveled outside the [place] in the last year?: No - Additonal Travel Details Have you been exposed to anyone with a communicable illness?: No - Travel Symptoms Symptom Screening: None Review of Systems Constitutional: Denies: Chills, Fever, Malaise, Weakness Eyes: Denies: Eye discharge ENT: Denies: Congestion, Throat pain Respiratory: Denies: Cough, Dyspnea, Hemoptysis, Wheezes Cardiovascular: Denies: Chest pain, Palpitations, Syncope Endocrine: Denies: Fatigue, Polydipsia, Polyuria Gastrointestinal: Reports: Diarrhea. Denies: Abdominal pain, Constipation, Hematemesis, Hematochezia, Melena, Nausea, Vomiting Genitourinary: Denies: Dysuria, Frequency, Hematuria Musculoskeletal: Denies: Arthralgia, Back pain, Myalgia Skin: Denies: Bruising, Change in color, Rash Neurological: Denies: Headache Psychiatric: Denies: Anxiety Hematological/Lymphatic: Denies: Easy bleeding, Easy bruising Past Medical History - SOCIAL HISTORY Smoking Status: Current every day smoker Alcohol Use: Occasional Drug Use: None - RESPIRATORY Hx Respiratory Disorders: Yes Hx Asthma: Yes Comment:: uses inhaler but doesn't know dx allergies - CARDIOVASCULAR Hx Cardio Disorders: Yes Hx Edema: Yes () Hx Hypertension: Yes Hx Vascular Disease: Yes - NEURO Hx Neuro Disorders: Yes Hx CVA: Yes (2010) - GI Hx GI Disorders: No Comment:: occasional abd pain - Hx Genitourinary Disorders: No - ENDOCRINE Hx Endocrine Disorders: No - MUSCULOSKELETAL Hx Musculoskeletal Disorders: Yes Hx Arthritis: Yes (lower back) - PSYCH Hx Psych Problems: Yes Hx Anxiety: Yes (recent dx) Hx Depression: Yes - HEMATOLOGY/ONCOLOGY Hx Hematology/Oncology Disorders: No Family Medical History Any Significant Family History?: Yes Hx Anxiety: Mother Hx Depression: Father, Mother, Children Hx Diabetes: Grandparents Hx HTN: Mother Hx Seizures: Brother/Sister Physical Exam - General General Appearance: Alert, Oriented x3, Cooperative, No acute distress Limitations: No limitations - Head Head exam: Atraumatic, Normal inspection - Eye Eye exam: Normal appearance, PERRL. negative: Conjunctival injection, Scleral icterus - ENT ENT exam: Normal exam, Mucous membranes moist Ear exam: Normal external inspection Nasal Exam: Normal inspection Mouth exam: Normal external inspection - Neck Neck exam: Normal inspection - Respiratory Respiratory exam: Normal lung sounds bilaterally. negative: Respiratory distress, Rhonchi, Stridor, Wheezes - Cardiovascular Cardiovascular Exam: Regular rate, Normal rhythm, Normal heart sounds - GI/Abdominal GI/Abdominal exam: Soft. negative: Distended, Guarding, Tenderness - Rectal Rectal exam: Deferred - exam: Deferred - Extremities Extremities exam: Normal inspection. negative: Pedal edema, Tenderness - Back Back exam: Denies: CVA tenderness (R), CVA tenderness (L) - Neurological Neurological exam: Alert, Oriented X3 - Psychiatric Psychiatric exam: Normal affect, Normal mood. negative: Agitated, Anxious - Skin Skin exam: Dry, Intact, Normal color, Warm Course Vital Signs 05/26/19 15:36 Temperature 98.2 F Pulse Rate 62 Respiratory 18 Rate Blood Pressure 126/87 Pulse Ox 97 - Reevaluation(s) Reevaluation #1: 05/26/19 17:46 The stools studies are negative 05/26/19 18:51 The CBC is normal The CMP was reviewed Normal Bilirubin Mild increase in AST and ALT Alk Phos pending 05/26/19 19:00 We discussed the results of the tests and questions were answered at the time of discharge. The patient is doing well and is comfortable with DC. DC vitals were reviewed. We discussed at length reasons to immediately return to the ED as well as close follow up. The patient will call the PCP for close follow up of this ED visit to review this visit and the tests performed 05/27/19 10:18 Alk Phos reported this AM is normal Medical Decision Making - Lab Data Result diagrams: 05/26/19 16:25 05/26/19 16:25 Lab Results 05/26/19 05/26/19 Range/Units 16:25 16:25 WBC 6.4 (4.2-12.2) K/uL RBC 5.61 (4.40-5.70) M/uL Hgb 17.7 (14.0-18.0) gm/dl Hct 51.6 (42.0-52.0) % MCV 92.0 (81-97) fl MCH 31.6 (27-33) pg MCHC 34.3 (32-36) g/dl RDW 14.3 (11.5-14.5) % Plt Count 118 L (130-400) K/uL MPV 11.3 H (7.4-10.4) fl Eosinophils % Not Reportable Basophils % Not Reportable Absolute Neutrophils 3.23 Stool Occult Blood Negative (NEGATIVE) Disposition Disposition: Discharge Clinical Impression: Diarrhea Qualifiers: Diarrhea type: unspecified type Qualified Code(s): R19.7 - Diarrhea, unspecified Disposition: Home, Self-Care Condition: (1) Good Instructions: Acute Diarrhea (ED) Additional Instructions: Review this ER visit and the tests performed with your family doctor Call your doctor for the next available follow up appointment Return to the ER for a recheck if worse, any new concerns or questions Recheck you liver enzymes in the next one week Avoid any alcohol or tylenol Prescriptions: Loperamide HCl [Imodium A-D] 2 mg PO Q6H #12 tablet Forms: Patient Portal Access Time of Disposition: 18:59 Quality - Quality Measures Quality Measures: N/A - Blood Pressure Screening Does Patient Have Any of the Following: No Blood Pressure Classification: Pre-Hypertensive BP Reading Systolic Measurement: 126 Diastolic Measurement: 87 Screening for High Blood Pressure: < Pre-Hypertensive BP, F/U Documented > [G8950] Pre-Hypertensive Follow-up Interventions: Referral to alternative/primary care provider.
[2019-05-26 16:58] LABS: CRYPTOSPORIDIUM PARVUM ANTIGEN NOT DETECTED (NOT DETECT); ROTOVIRUS NOT DETECTED (NOT DETECT)
[2019-05-26 17:09] LABS: PLATELET ESTIMATE NORMAL (NORMAL); STOOL FOR POLYS NO WBC'S OBSERVED (NO WBC'S)
[2019-05-26 17:40] LABS: MOLECULAR C DIFF TOXIN SCREEN NOT DETECTED (NOT DETECT)
[2019-05-26 17:59] LABS: BLOOD UREA NITROGEN 17 mg/dL (6-20); CREATININE 0.8 mg/dL (0.7-1.2); EST GLOMERULAR FILTRATION RATE > 60 mL/min; TOTAL PROTEIN 7.9 g/dL (6.6-8.7)
[2019-05-26 18:01] LABS: GLUCOSE,RANDOM 118 mg/dL (74-109)
[2019-05-26 18:04] LABS: ALB/GLOB RATIO 1.4 (1.1-1.8); ALBUMIN 4.6 g/dL (4.0-5.0); ALT/SGPT 212 U/L (<41); AST/SGOT 121 U/L (10.0-50.0)
[2019-05-27 09:40] LABS: ALKALINE PHOSPHATASE 77 U/L (40-129)
== END 2019-05-26 19:12 | disposition home or self-care (01) ==
LOC: ER 14:56
DX: R19.7 Diarrhea, unspecified (principal); I10 Essential (primary) hypertension; F17.210 Nicotine dependence, cigarettes, uncomplicated
CPT/HCPCS: 80053; 82272; 85027; 87329; 87425; 87493; 89055; 99285; J7030

== ENCOUNTER 2019-10-07 17:44 | Emergency (ER) | payer MEDICARE, OTHER ==
[2019-10-07] MEDS ORDERED: PREDNISONE 20 MG TAB PO ONE (18:09)
[2019-10-07] MEDS ORDERED: AZITHROMYCIN 500 MG TABLET PO ONE (18:09)
[2019-10-07] MEDS ORDERED: IPRATROPIUM/ALBUTEROL (0.5MG/3MG) NEB INH ONE (18:15)
--- NOTE | 2019-10-07 18:15 | Emergency Department Record ---
History of Present Illness - General Chief Complaint: Cough Stated Complaint: ZAHRA,SINUS/CHEST CONGESTION,COUGH Time Seen by Provider: 10/07/19 18:09 Source: Patient Mode of Arrival: Ambulatory Limitations: No limitations - History of Present Illness Initial Comments: 54 yo male presents with two days of cough, wheeze, congestion. He has had subjective fever. No nausea, vomiting or diarrhea. He reports he has a history of COPD. He is using his albuterol inhaler. He is bring up thick sputum but it seems clear so far. No blood in the sputum. He did not have a Flu shot this year. PCP is in [place]. No leg swelling or chest pain. MD Complaint: Cough, Nasal congestion, Other (Wheeze) Onset/Timin -: Days(s) Severity: Moderate Consistency: Intermittent Improves With: Other (Inhaler) Worsens With: Other (Coughing) Associated Symptoms: Chills, Cough, Nasal congestion, Rhinorrhea Treatments Prior to Arrival: Other (Albuterol) - Related Data Previous Rx's Medication Instructions Recorded Albuterol Sulfate [Proair Hfa] 1 - 2 puff IH .EVERY 4-6 HOURS PRN 08/14/18 #1 inhaler Azithromycin [Zithromax] 250 mg PO DAILY #4 tab 10/07/19 Prednisone [Prednisone 20Mg] 20 mg PO BID #10 tab 10/07/19 Allergies Allergy/AdvReac Type Severity Reaction Status Date / Time No Known Drug Allergies Allergy Verified 10/07/19 17:55 Travel/Exposure Screening - Travel/Exposure Within Last 30 Days Have you traveled within the last 30 days?: Yes Additional Travel Detail:: S C - Travel/Exposure Within Last Year Have you traveled outside the [place] in the last year?: No - Additonal Travel/Exposure Details Have you been exposed to anyone with a communicable illness?: No - Travel Symptoms Symptom Screening: None Review of Systems Constitutional: Reports: Chills, Fever Eyes: Denies: Eye discharge, Eye pain, Vision change ENT: Reports: Congestion. Denies: Epistaxis, Throat pain Respiratory: Reports: Cough, Dyspnea, Wheezes. Denies: Hemoptysis, Stridor Cardiovascular: Denies: Chest pain, Dyspnea on exertion, Edema Endocrine: Denies: Fatigue Gastrointestinal: Denies: Abdominal pain, Diarrhea, Nausea, Vomiting Genitourinary: Denies: Dysuria, Frequency, Hematuria Musculoskeletal: Denies: Arthralgia, Back pain, Myalgia Skin: Denies: Bruising, Change in color, Rash Neurological: Denies: Headache Psychiatric: Denies: Anxiety Hematological/Lymphatic: Denies: Easy bleeding, Easy bruising Past Medical History - SOCIAL HISTORY Smoking Status: Current every day smoker Alcohol Use: Occasional Drug Use: Rare Drug Use Detail:: Marijuana - RESPIRATORY Hx Respiratory Disorders: Yes Hx Asthma: Yes Comment:: uses inhaler but doesn't know dx allergies - CARDIOVASCULAR Hx Cardio Disorders: Yes Hx Edema: Yes (BLE) Hx Hypertension: Yes Hx Vascular Disease: Yes - NEURO Hx Neuro Disorders: Yes Hx CVA: Yes (2010) - GI Hx GI Disorders: No Comment:: occasional abd pain - Hx Genitourinary Disorders: No - ENDOCRINE Hx Endocrine Disorders: No - MUSCULOSKELETAL Hx Musculoskeletal Disorders: Yes Hx Arthritis: Yes (lower back) - PSYCH Hx Psych Problems: Yes Hx Anxiety: Yes (recent dx) Hx Depression: Yes - HEMATOLOGY/ONCOLOGY Hx Hematology/Oncology Disorders: No Family Medical History Any Significant Family History?: Yes Hx Anxiety: Mother Hx Depression: Father, Mother, Children Hx Diabetes: Grandparents Hx HTN: Mother Hx Seizures: Brother/Sister Physical Exam - General General Appearance: Alert, Oriented x3, Cooperative, No acute distress, Other (No acute distress, no conversational dyspnea) Limitations: No limitations - Head Head exam: Atraumatic, Normal inspection - Eye Eye exam: Normal appearance, PERRL. negative: Conjunctival injection, Scleral icterus - ENT ENT exam: Normal exam, Mucous membranes moist Ear exam: Normal external inspection Nasal Exam: Discharge Mouth exam: Normal external inspection, Tongue normal Teeth exam: Normal inspection Throat exam: Normal inspection. negative: Tonsillar erythema, Tonsillomegaly, Tonsillar exudate, R peritonsillar mass, L peritonsillar mass - Neck Neck exam: Normal inspection - Respiratory Respiratory exam: Decreased breath sounds, Prolonged expiratory, Rhonchi, Wheezes. negative: Normal lung sounds bilaterally, Accessory muscle use, Respiratory distress - Cardiovascular Cardiovascular Exam: Regular rate, Normal rhythm, Normal heart sounds - Rectal Rectal exam: Deferred - exam: Deferred - Extremities Extremities exam: Normal inspection. negative: Pedal edema - Back Back exam: Denies: CVA tenderness (R), CVA tenderness (L) - Neurological Neurological exam: Alert, Oriented X3 - Psychiatric Psychiatric exam: Normal affect, Normal mood. negative: Agitated, Anxious - Skin Skin exam: Dry, Intact, Normal color, Warm Course Vital Signs 10/07/19 17:58 Temperature 98.4 F Pulse Rate 62 Respiratory 18 Rate Blood Pressure 128/85 Pulse Ox 93 L - Reevaluation(s) Reevaluation #1: 10/07/19 18:45 The Influenza swab is negative 10/07/19 18:46 The patient was checked after the Duoneb He has mild wheeze but certainly improved 10/07/19 19:39 The final CXR report was reviewed. No acute process The patient is feeling much better, we discussed the treatment plan, reasons to return immediately and follow up importance Disposition Disposition: Discharge Clinical Impression: Bronchitis, COPD exacerbation Disposition: Home, Self-Care Condition: (1) Good Instructions: COPD (Chronic Obstructive Pulmonary Disease) (ED) Additional Instructions: Call your doctor for a recheck this week Return to the ER if worse, fever, short of breath or any new symptoms or concerns Take the Antibiotic and steroid as directed You may use your albuterol 2 puffs every 4 hours Prescriptions: Prednisone [Prednisone 20Mg] 20 mg PO BID #10 tab Azithromycin [Zithromax] 250 mg PO DAILY #4 tab Forms: Patient Portal Access Time of Disposition: 19:10 Quality - Quality Measures Quality Measures: N/A - Blood Pressure Screening Does Patient Have Any of the Following: No Blood Pressure Classification: Pre-Hypertensive BP Reading Systolic Measurement: 128 Diastolic Measurement: 85 Screening for High Blood Pressure: < Pre-Hypertensive BP, F/U Documented > [G8950] Pre-Hypertensive Follow-up Interventions: Referral to alternative/primary care provider.
[2019-10-07 18:38] LABS: INFLUENZA A NEGATIVE (NEGATIVE); INFLUENZA B NEGATIVE (NEGATIVE)
--- NOTE | 2019-10-07 18:58 | RADIOLOGY REPORT ---
EXAMINATION: Two View Chest Radiographs EXAM DATE: 10/07/2019 6:44 PM TECHNIQUE: Frontal and lateral views INDICATION: cough, sputum, wheeze. The technologist elicited the history: Cough for 4 days with shor tness of breath. The patient denies fever. Smoker. COMPARISON: Chest radiographs, 08/14/2018 and 04/09/2017. ENCOUNTER: Not applicable FINDINGS: The heart, mediastinum, and pulmonary vasculature are normal. Mild tortuosity of the aorta. No lung c onsolidation or pleural effusions are present. The bony structures are intact. Compared to the previo us study, no significant changes. If the symptoms persist, chest CT could be helpful in further evalu ation. IMPRESSION: No acute cardiopulmonary disease is present. Dictated by: Margarette Fields MD on 10/07/2019 6:54 PM. .
== END 2019-10-07 19:21 | disposition home or self-care (01) ==
LOC: ER 17:44
DX: J44.0 Chronic obstructive pulmonary disease with (acute) lower respiratory infection (principal); J20.9 Acute bronchitis, unspecified; J44.1 Chronic obstructive pulmonary disease with (acute) exacerbation; F17.210 Nicotine dependence, cigarettes, uncomplicated; I10 Essential (primary) hypertension
CPT/HCPCS: 71046; 87400; 94640; 99284; J7512